=== PATIENT | female | born 1950 | race Caucasian/White ===

== ENCOUNTER 2023-04-28 08:56 | Outpatient (RCR) | payer OTHER, MEDICARE, SELFPAY | END 2023-04-28 23:59 | disposition home or self-care (01) | LOC: RPT 08:56 | PROVIDERS: ATTENDING PHYSICIAN Nurse Practitioner Family; FAMILY PHYSICIAN Internal Medicine | DX: M54.2 Cervicalgia (principal); M54.42 Lumbago with sciatica, left side; Z73.6 Limitation of activities due to disability; V89.2XXD Person injured in unspecified motor-vehicle accident, traffic, subsequent encounter | CPT/HCPCS: 97010; 97110; 97112; 97162 ==

== ENCOUNTER 2023-05-22 13:17 | Outpatient (RCR) | payer OTHER, MEDICARE, SELFPAY | END 2023-05-24 13:49 | disposition home or self-care (01) | LOC: RPT 13:17 | PROVIDERS: ATTENDING PHYSICIAN Nurse Practitioner Family; FAMILY PHYSICIAN Internal Medicine | DX: M54.2 Cervicalgia (principal); M54.42 Lumbago with sciatica, left side | CPT/HCPCS: 97010; 97110; 97112 ==

== ENCOUNTER → 2023-08-31 14:55 | Outpatient (REF) | payer MEDICARE, OTHER, SELFPAY | LOC: HWWDC 14:55 | PROVIDERS: ATTENDING PHYSICIAN Nurse Practitioner Family; FAMILY PHYSICIAN Internal Medicine | DX: Z12.31 Encounter for screening mammogram for malignant neoplasm of breast (principal) | CPT/HCPCS: 77063; 77067 ==

== ENCOUNTER → 2024-01-02 11:58 | Outpatient (REF) | payer MEDICARE, OTHER, SELFPAY | LOC: RCS 11:58 | PROVIDERS: ATTENDING PHYSICIAN Nurse Practitioner Family; FAMILY PHYSICIAN Nurse Practitioner Primary Care; REFERRING PHYSICIAN Internal Medicine Cardiovascular Disease | DX: I48.91 Unspecified atrial fibrillation (principal) | CPT/HCPCS: 93005 ==

== ENCOUNTER 2024-08-26 06:01 | Day surgery (SDC) | payer MEDICARE, OTHER, SELFPAY ==
[2024-08-26] VITALS (9 sets, daily range): BP systolic 130–174; BP diastolic 56–79; BMI 27.1
[2024-08-26 06:37] LABS: Glucose - Point of Care 115 mg/dl (70-99)
[2024-08-26] MEDS: TYLENOL 1000 MG PO (06:38)
[2024-08-26] MEDS: CELEBREX 200 MG PO (06:38)
[2024-08-26] MEDS: NORMOSOL-R/PLASMALYTE-A 1000 IV (06:38)
[2024-08-26 09:49] LABS: Glucose - Point of Care 119 mg/dl (70-99)
[2024-08-26] MEDS: ROXICODONE 5 MG PO (09:58)
== END 2024-08-26 11:40 | disposition home or self-care (01) ==
LOC: SDS 06:01
PROVIDERS: ATTENDING PHYSICIAN Student in an Organized Health Care Education/Training Program
DX: M20.12 Hallux valgus (acquired), left foot (principal)
CPT/HCPCS: 28750; 82962; C1713

== ENCOUNTER → 2024-10-02 08:54 | Outpatient (REF) | payer MEDICARE, OTHER, SELFPAY | LOC: HWRAD 08:54 | PROVIDERS: ATTENDING PHYSICIAN Nurse Practitioner Primary Care | DX: M85.89 Other specified disorders of bone density and structure, multiple sites (principal) | CPT/HCPCS: 77080 ==

== ENCOUNTER → 2024-10-10 07:34 | Outpatient (REF) | payer MEDICARE, OTHER, SELFPAY | LOC: RAD 07:34 | PROVIDERS: ATTENDING PHYSICIAN Nurse Practitioner Primary Care | DX: E78.49 Other hyperlipidemia (principal); R09.89 Other specified symptoms and signs involving the circulatory and respiratory systems | CPT/HCPCS: 93880; 93922; 93925 ==

== ENCOUNTER → 2024-10-23 13:22 | Outpatient (REF) | payer MEDICARE, OTHER, SELFPAY | LOC: HWWDC 13:22 | PROVIDERS: ATTENDING PHYSICIAN Nurse Practitioner Primary Care | DX: Z12.31 Encounter for screening mammogram for malignant neoplasm of breast (principal) | CPT/HCPCS: 77063; 77067 ==

== ENCOUNTER 2024-11-08 10:14 | Day surgery (SDC) | payer MEDICARE, OTHER, SELFPAY ==
[2024-11-08] VITALS (11 sets, daily range): BP systolic 145–184; BP diastolic 53–71; BMI 26.7
[2024-11-08 11:10] LABS: Hematocrit 40.9 % (37.0-47.0); Hemoglobin 13.3 g/dL (12.0-16.0); Mean Corp Hgb Conc. 32.5 g/dL (33.0-37.0); Mean Corpuscular Volume 96.5 fL (81.0-99.0); Platelet Count 242 10^3/uL (130-400); Red Cell Dist. Width 14.0 % (11.5-14.5)
[2024-11-08 11:12] LABS: Glucose - Point of Care 115 mg/dl (70-99)
[2024-11-08 11:21] LABS: APTT 28.9 Sec (23.4-35.0)
[2024-11-08 11:36] LABS: Blood Urea Nitrogen 23 mg/dl (7-17); Calcium 9.3 mg/dl (8.4-10.2); Carbon Dioxide 24 mmol/L (22-30); Chloride 110 mmol/L (98-107); Estimated Creatinine Clearance 43 ml/min; Glucose 131 mg/dl (70-99); Potassium 4.1 mmol/L (3.5-5.1); Sodium 142 mmol/L (135-145); eGFR 58.75
[2024-11-08] MEDS: NSS 500 IV ×2 (13:30→16:28)
--- NOTE | 2024-11-08 13:30 | W.SUR.PREOP ---
Pre-Operative Surgical Note
-
I have examined this patient prior to the performance of the scheduled procedure.
The patient's condition is unchanged from the time of the current History and
Physical and the patient is able to undergo the scheduled procedure.
--- NOTE | 2024-11-08 15:15 | W.SUR.POST ---
Surgical Immediate Post Op
Note
Pre Op Diagnosis: PAD
Post Op Diagnosis: PAD
Procedure Performed: Diagnostic LLE arteriogram, Perclose right fem
Primary Surgeon: Kyle
Anesthesia: local and sedation
Estimated Blood Loss: <2cc
Fluids: see anesthesia flow sheet
Drains/Shunts: none
Specimens/Cultures: none
Doppler/Duplex/Angio (Y/N): Y
Complications: none
Operative Findings: see op note
[2024-11-08 15:24] LABS: Glucose - Point of Care 95 mg/dl (70-99)
--- NOTE | 2024-11-08 15:57 | OR.RPT ---
Operative Report
Operative Report
PROCEDURE DATE: 11/08/2024
Preoperative diagnosis: Chronic limb threatening ischemia left lower extremity, nonhealing left first toe wound.
Postoperative diagnosis: Same
Procedure:
1. Duplex assisted right common femoral artery cannulation.
2. Aortogram and pelvic angiogram.
3. Left lower extremity arteriogram with selective/third order cannulation of the superficial femoral artery.
4. Right femoral angiogram.
5. Percutaneous Perclose suture closure right common femoral artery
6. Supervision and interpretation.
Surgeon: Kyle
Pastry Assistant: None
Complications: None
Anesthesia: Local, sedation
Fluoroscopy:
5.3 min
3.4 mGy
11.01 gy.cm2
Indications for procedure:
Chronic left lower extremity limb threatening ischemia./Benefits/alternatives of angiography fully discussed. Patient understood all wished to proceed.
Description of procedure:
Patient was identified, brought to the operating room. Placed on the table in the supine position. After the adequate administration of anesthesia, the patient was prepped and draped in the standard surgical fashion. A standard preoperative
timeout was undertaken and everybody was in agreement with the plan.
The right common femoral artery was accessed with a micropuncture kit under direct duplex ultrasound guidance. A 5 Maltese sheath was then advanced over a 0.035 inch wire, and a eaton's hook catheter was advanced into the abdominal aorta.
Aortogram and pelvic angiogram was obtained. Findings as follows:
Infrarenal aorta: Patent distal infrarenal aorta with no significant stenosis. Focal plaque/irregularity in the contour but no definitive stenosis or aneurysm identified.
Right common iliac artery: Patent with no significant stenosis.
Right external iliac artery: Patent with no significant stenosis.
Left common iliac artery: Patent with no significant stenosis.
Left external iliac artery: Patent with no significant stenosis.
Using a floppy angled hydrophilic wire, the left common femoral artery was cannulated and the catheter was advanced. Left lower extremity arteriogram was obtained. Findings as follows:
Common femoral artery: Patent with no significant stenosis.
Profunda femoris artery: Patent with no significant stenosis.
At this point I selectively cannulated the left superficial femoral artery and then advanced my catheter.
Superficial femoral artery: Patent with no significant stenosis.
Popliteal artery: Patent with severe focal stenosis in the immediate behind the knee segment. Below the knee was slightly smaller and then there was luminal irregularities with filling defects, appeared to be chronic thrombus as well as some areas
of stenosis. Could have been bulky plaque, but the appearance more so appeared like chronic thrombus. There is thrombus or plaque extended into the below the knee popliteal artery and tibioperoneal trunk origin as well as proximal anterior tibial
artery.
Anterior tibial artery: As noted above there was possibly some chronic thrombus or bulky plaque extending into the origin of anterior tibial artery. Beyond here the artery was patent and continued down onto the foot to become the dorsalis pedis.
Distal dorsalis pedis artery poorly filled and became diminutive.
Tibial peroneal trunk: Patent with filling defect/chronic thrombus/bulky plaque extending from the below-knee popliteal artery into the origin. Beyond the origin the remainder of the TP trunk was patent.
Peroneal artery: Occluded after the first 2 cm. Reconstituted in its mid segment via collaterals. Continued to the ankle where it gave rise to typical Y collaterals though these collaterals were very small/diminutive in stature.
Posterior tibial artery:Patent with some luminal irregularities in the proximal 4 to 6 cm but no definitive stenosis. The remainder of the posterior tibial artery was widely patent with no stenosis identified.
At this point I felt the patient would be best served with a bypass (due to extension of behind the knee popliteal to below the knee popliteal disease as well as involvement of the origins of the trifurcation vessels, and in addition the potential
presence of chronic thrombus). Ideally bypass from above-knee popliteal artery to posterior tibial artery. Patient will have to be vein mapped, will obtain CT angiogram imaging to delineate thrombus versus plaque filling defects.
At this point the wires and catheters were withdrawn. Right femoral angiogram demonstrated good puncture of the right common femoral artery. I therefore then used an Mcfadden Pro-glide percutaneous suture closure device to close the common femoral
artery. There was still some slight ooze and therefore manual pressure was applied as well. Hemostasis was fully achieved. The patient tolerated procedure well. Upon completion she had a palpable right dorsalis pedis pulse.
[2024-11-08] MEDS: NSS 1000 IV (16:29)
== END 2024-11-08 18:00 | disposition home or self-care (01) ==
LOC: CATH 10:14
PROVIDERS: ATTENDING PHYSICIAN Surgery Vascular Surgery; PRIMARYCARE PHYSICIAN Nurse Practitioner Primary Care
DX: E11.51 Type 2 diabetes mellitus with diabetic peripheral angiopathy without gangrene (principal); E11.22 Type 2 diabetes mellitus with diabetic chronic kidney disease; I12.9 Hypertensive chronic kidney disease with stage 1 through stage 4 chronic kidney disease, or unspecified chronic kidney disease; N18.31 Chronic kidney disease, stage 3a; E03.9 Hypothyroidism, unspecified; I25.10 Atherosclerotic heart disease of native coronary artery without angina pectoris; I48.0 Paroxysmal atrial fibrillation; Z95.1 Presence of aortocoronary bypass graft; Z95.5 Presence of coronary angioplasty implant and graft; I25.2 Old myocardial infarction; Z79.899 Other long term (current) drug therapy; Z79.890 Hormone replacement therapy; Z79.84 Long term (current) use of oral hypoglycemic drugs
CPT/HCPCS: 36247; 75625; 75710; 80048; 82962; 85027; 85730; 86850; 86900; 86901; C1760; C1769; C1894; Q9967

== ENCOUNTER → 2024-11-14 08:56 | Outpatient (REF) | payer MEDICARE, OTHER, SELFPAY | LOC: RAD 08:56 | PROVIDERS: ATTENDING PHYSICIAN Surgery Vascular Surgery; FAMILY PHYSICIAN Nurse Practitioner Primary Care; REFERRING PHYSICIAN Nurse Practitioner | DX: I73.9 Peripheral vascular disease, unspecified (principal); Q27.8 Other specified congenital malformations of peripheral vascular system | CPT/HCPCS: 93970 ==

== ENCOUNTER → 2024-11-15 07:41 | Outpatient (REF) | payer MEDICARE, OTHER, SELFPAY | LOC: RAD 07:41 | PROVIDERS: ATTENDING PHYSICIAN Surgery Vascular Surgery; FAMILY PHYSICIAN Nurse Practitioner Primary Care; REFERRING PHYSICIAN Nurse Practitioner | DX: I73.9 Peripheral vascular disease, unspecified (principal) | CPT/HCPCS: 75635; Q9967 ==

== ENCOUNTER 2024-12-11 09:19 | Inpatient (IN) | payer MEDICARE, OTHER, SELFPAY ==
[2024-12-09 09:41] VITALS: BMI 27.7
[2024-12-09 10:08] LABS: Hematocrit 44.3 % (37.0-47.0); Hemoglobin 14.3 g/dL (12.0-16.0); Mean Corp Hgb Conc. 32.3 g/dL (33.0-37.0); Mean Corpuscular Volume 97.4 fL (81.0-99.0); Nucleated Red Blood Cells % 0 %; Platelet Count 227 10^3/uL (130-400); Red Cell Dist. Width 14.1 % (11.5-14.5)
[2024-12-09 10:15] LABS: INR 1.22; PT 15.7 Sec (11.4-14.6)
[2024-12-09 10:16] LABS: APTT 29.2 Sec (23.4-35.0)
[2024-12-09 10:35] LABS: Blood Urea Nitrogen 30 mg/dl (7-17); Calcium 9.9 mg/dl (8.4-10.2); Carbon Dioxide 25 mmol/L (22-30); Chloride 108 mmol/L (98-107); Estimated Creatinine Clearance 35 ml/min; Glucose 144 mg/dl (70-99); Potassium 4.9 mmol/L (3.5-5.1); Sodium 142 mmol/L (135-145); eGFR 47.21
[2024-12-11] VITALS (39 sets, daily range): BP systolic 114–177; BP diastolic 48–117; BMI 26.9
[2024-12-11 10:07] LABS: Glucose - Point of Care 123 mg/dl (70-99)
[2024-12-11] MEDS: BACTROBAN NASAL 1 GRAM NASAL (10:21)
[2024-12-11] MEDS: PERIDEX 0.12% ORAL RINSE 15 ML PO (10:21)
[2024-12-11] MEDS: NSS 500 IV (10:21)
[2024-12-11] MEDS: EMEND 40 MG PO (11:10)
[2024-12-11 11:53] LABS: Glucose - Point of Care 113 mg/dl (70-99)
[2024-12-11 14:12] LABS: Glucose - Point of Care 137 mg/dl (70-99)
--- NOTE | 2024-12-11 15:20 | W.SUR.POST ---
Surgical Immediate Post Op
Note
Pre Op Diagnosis: PAD
Post Op Diagnosis: Same
Procedure Performed: Left lower extremity above-knee pop to PT artery bypass with SVG
Primary Surgeon: Kyle
Assist: Landon ALEGRIA
Anesthesia: General
Estimated Blood Loss: 25 cc
Fluids: See anesthesia flowsheet
Drains/Shunts: None
Specimens/Cultures: None
Doppler/Duplex/Angio (Y/N): Y
Complications: None
Operative Findings: Palpable PT pulse
[2024-12-11 15:45] LABS: Glucose - Point of Care 131 mg/dl (70-99)
[2024-12-11] MEDS: DILAUDID 0.25 MG IV ×2 (15:55→16:07)
[2024-12-11 15:58] LABS: Hematocrit 37.4 % (37.0-47.0); Hemoglobin 12.3 g/dL (12.0-16.0); Mean Corp Hgb Conc. 32.9 g/dL (33.0-37.0); Mean Corpuscular Volume 96.1 fL (81.0-99.0); Platelet Count 205 10^3/uL (130-400); Red Cell Dist. Width 13.8 % (11.5-14.5)
[2024-12-11 16:05] LABS: INR 1.06; PT 14.3 Sec (11.4-14.6)
[2024-12-11 16:06] LABS: APTT 30.8 Sec (23.4-35.0)
[2024-12-11 16:17] LABS: Blood Urea Nitrogen 23 mg/dl (7-17); Calcium 8.5 mg/dl (8.4-10.2); Carbon Dioxide 23 mmol/L (22-30); Chloride 109 mmol/L (98-107); Estimated Creatinine Clearance 53 ml/min; Glucose 140 mg/dl (70-99); Potassium 4.8 mmol/L (3.5-5.1); Sodium 138 mmol/L (135-145); eGFR > 60.00
[2024-12-11] MEDS: NSS 1000 IV (16:33)
--- NOTE | 2024-12-11 16:43 | CON.INTV ---
Consultation
Consultation Request
Date/Time Consultation Requested: 12/11/2024
Date/Time Consultation Performed: 12/11/2024
Medical History
-
Chief Complaint: Nonhealing foot ulcer
History of Present Illness:
Patient is a 74-year-old female who was referred to vascular surgery by her felter tennis balls for nonhealing left foot wound. Patient subsequently had vascular studies performed for suggestive of peripheral vascular disease. Patient today was admitted to
the hospital for bypass surgery and postprocedure patient was admitted to the ICU. 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
Past medical history. Hypertension, hyperlipidemia, diabetes, history of coronary artery disease, status post PCI and coronary artery bypass graft. Acinar cell cancer of pancreas status post distal pancreatectomy and splenectomy. Paroxysmal
atrial fibrillation. Hyperlipidemia.
Surgical history. Thyroid nodule removed, coronary artery bypass graft, distal pancreatectomy and splenectomy, PCI of the heart, left foot surgery bunion surgery.
Family history. Patient's father had sudden cardiac . No reported history of lung cancer.
Social history. No reported history of smoking.
Allergies / Home Medications
Allergies
Allergy/AdvReac Type Severity Reaction Status Date / Time
adhesive tape Allergy Rash Verified 12/11/24 10:14
amoxicillin (From Augmentin) Allergy severe Verified 12/11/24 10:14
stomach
upset/diarrhea
clavulanic acid (From Allergy severe Verified 12/11/24 10:14
Augmentin) stomach
upset/diarrhea
erythromycin base Allergy Tongue Verified 12/11/24 10:14
Swelling
valsartan (From Diovan) Allergy coughing Verified 12/11/24 10:14
Home Medications
�Medication �Instructions �Recorded �Confirmed �Last Taken �Type
amlodipine 5 mg tablet 5 mg PO DAILY 10/06/16 12/11/24 12/11/24 08:00 History
ezetimibe 10 mg tablet 10 mg PO QPM 10/06/16 12/11/24 12/10/24 19:15 History
rosuvastatin 20 mg tablet 20 mg PO QPM 10/06/16 12/11/24 12/10/24 19:15 History
apixaban 5 mg tablet (Eliquis) 5 mg PO BID 08/21/24 12/11/24 12/09/24 20:00 History
empagliflozin 25 mg tablet 25 mg PO DAILY 08/21/24 12/11/24 12/07/24 08:00 History
(Jardiance)
evolocumab 140 mg/mL subcutaneous 140 mg SC Q2W 08/21/24 12/11/24 11/29/24 History
syringe (Repatha Syringe)
acetaminophen 500 mg tablet 500 mg PO Q6H PRN pain 08/26/24 12/11/24 12/10/24 23:30 History
metoprolol succinate 25 mg 25 mg PO DAILY 08/26/24 12/11/24 12/11/24 08:00 History
tablet,extended release 24 hr
calcium 600 mg (as carbonate)-vit 1 tab PO QPM 11/05/24 12/11/24 12/10/24 19:15 History
D3 20 mcg (800 unit) chewable
tablet (Caltrate plus D)
levothyroxine 88 mcg tablet 88 mcg PO DAILY 11/05/24 12/11/24 12/11/24 08:00 History
(Synthroid)
mupirocin 2 % topical ointment 1 applic topical DAILY Left Great 11/05/24 12/11/24 12/11/24 08:00 History
pantoprazole 20 mg tablet,delayed 20 mg PO BID 11/05/24 12/11/24 12/11/24 08:00 History
release (Protonix)
Review of Systems
-
Hematologic/Lymphatic: Other (All 14 systems reviewed and negative except as stated above in the history of present illness.)
Vitals / Labs / Diagnostic Testing
Vital Signs
Temp Pulse Resp BP Pulse Ox
97.1 F 55 13 129/55 100
12/11/24 16:30 12/11/24 16:30 12/11/24 16:30 12/11/24 16:30 12/11/24 16:30
Lab Data
12/11/24 15:44
12/11/24 15:44
Laboratory Results
12/11/24
15:44
PT 14.3
INR 1.06
APTT 30.8
Diagnostic Testing:
Physical Exam
-
HEENT: Normocephalic
Cardiovascular: S1/S2
Respiratory: Clear
GI: Soft and Non Distended
Neurology: Awake and Alert
Skin: Warm and Other (Left foot somewhat warmer than the right)
General: Comfortable
Assessment
-
Patient is a 74-year-old female with history of peripheral vascular disease s/p left lower extremity above-knee popliteal to posterior tibial artery bypass with saphenous vein graft by vascular surgery service, POD #0
Continue observation following procedure
Follow neurovascular checks per protocol
Currently on Zetia, rosuvastatin, subcu heparin.
Defer antiplatelet and anticoagulant therapy to vascular surgery service
MAP of 82 currently, saturating 100% on 4 L supplemental oxygen.
Follow BP monitoring and parameters as set by primary team
Cardiac history reviewed, known history of coronary artery disease, PCI, CABG and atrial fibrillation
Monitor on telemetry
Pain control per protocol
RASS goal 0
No prior history of pulmonary disease, no prior history of smoking.
CXR reviewed indicating no acute disease
No prior PFTs for review
Encouraged IS
Diet advancement per protocol
Aspiration precautions
GI prophylaxis: Protonix
Cr at baseline, follow UO
Critical I/Os
Void trials
Replete electrolytes as needed
No signs/symptoms suspicious for infectious etiology at this time
Will observe off antibiotics for now
Follow temperatures/CBC
Hb and platelets postoperatively stable
DVT prophylaxis: Subcu heparin
Other medical diagnoses:
- CAD, s/p CABG 1991, PCI 2016. Currently on metoprolol and statins.
- Moderate Aortic stenosis
- Chronic Atrial Fibrillation. Currently on metoprolol, defer timing for anticoagulation resumption to vascular surgery service
- Hyperlipidemia. on Repatha, Zetia and Crestor
- HTN
- Hypothyroidism
- History of pancreatic cancer, status poor partial pancreatectomy and splenectomy.
Critical Care time 52 mins -- The patient is admitted for acute critical illness for the treatment of vital organ failure and/or prevention of further life-threatening conditions. Total care includes time spent in review of history, physical exam,
medications, hemodynamic/ventilator parameters, laboratory data, imaging and discussion with house staff, pharmacy, respiratory therapy, kids club attendant, and nursing
Data:
CXR 11/2024: Mild to moderate cardiomegaly
[2024-12-11] MEDS: DILAUDID 0.5 MG IV (17:34)
--- NOTE | 2024-12-11 17:40 | PTCARENOTE ---
Rec'd pt at 1650 via bed from PACU. Rec'd pt groggy but easily arousable and oriented. Admitted within 10-15 min of arrival to 9/10 L calf cramping. Initally did not want to take anything for it then agreed to take the pain medication and Medicated
at 1734 with Dilaudid 0.5 mg IV. Denies dizziness or headache. SKin is pale pink wm and dry. Pt with healing surgical wound from previous bunion surgery on L great toe. Currently with scabbing over. Pt with 3 incision down the L leg. L groin
incision with Primaseal dressing that is intact with scant amt of sang drainage. L thigh incision also with Primaseal with small amt of sang drainage and JOANNA wrap over. L calf with Primaseal dressing with small amt of sang drainage. All intact. Legs
bilaterally are warm to touch with cap refill <2 seconds. Denies numbness and able to move legs. + pulses. Bilat PT and Dp pulses are palpable as documented. No edema. Respirs are unlabored. Rec'd pt on 6l facemask with sats of 100%. Transitioned at
1730 to 2l nc with sats of 95-96%. BS are sl decreased at the bases otherwise clear. Monitor Aflutter with some periods of what might look like Afib. + murmur. VS as documented. Pt with L radial a line- zeroed and recalibrated. Waveform as
documented. Good CMS checks. Running about 20-30 mm/hg higher than the cuff Bp's 140/70 cuff vs 170/70's A line. Checked both upper arms both with same result. Abd is sof t with + BS. Denies nausea currently. Thermistor espinal intact for yellow
urine. IV NS infusing via R wrist site at 80 ml/hr Capped int intact L AC. Iza Navarrete in to see pt and aware of BP a line running in the 170's-will continue to monitor for now. Pts and daughter in. Call polanco in reach.
--- NOTE | 2024-12-11 18:00 | PTCARENOTE ---
Incisions unchanged. + pulses as documented. Pt does state that cramping is much better post Dilaudid. Daughter at the bedside.
[2024-12-11 18:03] LABS: Glucose - Point of Care 126 mg/dl (70-99)
--- NOTE | 2024-12-11 18:20 | PTCARENOTE ---
ECG and CXRay completed.
--- NOTE | 2024-12-11 18:21 | OR.RPT ---
Operative Report
Operative Report
PROCEDURE DATE: 12/11/2024
Preoperative diagnosis: Chronic limb threatening ischemia left lower extremity
Postoperative diagnosis: Same
Procedure: Left [id number] popliteal artery to posterior tibial artery bypass with ipsilateral nonreversed greater saphenous vein conduit.
Surgeon: Kyle
Security Intern: JOEL Navarrete, required for all aspects of procedure including assistance with traction/countertraction, following a suture line, assistance with closure.
Complications: None
Anesthesia: General
Indications for procedure:
Chronic limb threatening ischemia left lower extremity with nonhealing left first toe wound. CT angiogram and angiogram had confirmed significant peripheral arterial disease with occlusive disease below the knee. Risk/benefits/alternatives of
bypass were fully discussed. Patient understood and wished to proceed.
Description of procedure:
Patient was identified brought to the operating room placed on the table in supine position. After the adequate administration of anesthesia she was prepped and draped in the standard surgical fashion. A standard preoperative timeout was
undertaken and everybody was in agreement the plan. A longitudinal incision was made in the medial distal thigh that was carried through skin subcutaneous tissue. The sartorius muscle reflected posteriorly and in the deep loose areolar tissue
identified the popliteal artery. It was nicely pulsatile. It was soft. There was a lot of subcutaneous fat surrounding it and therefore I carefully dissected away from surrounding structures. Vessel loop was passed around it proximally and
distally.
Next a longitudinal incision was made in the medial mid calf about a fingerbreadth inferior to the tibia that was carried through skin subcutaneous tissue with the electrocautery. I then used electrocautery to divide through the soleus muscle to
the divided off the tibia. The deep posterior compartment was then entered. I identified the posterior tibial vein and then the artery. The artery was noted to be soft and had a good Doppler signal, however was a very small vessel. After hide
carefully dissected the lateral and medial groves for suitable segment, I was satisfied (I did not fully circumferentially dissected yet).
At this point I then made a longitudinal incision in the medial proximal thigh and extended it via another skip incision to mobilize the greater saphenous vein. The saphenous vein was identified and mobilized out of its bed, ligating any branches
between silk ties and clips and then dividing them. Once I mobilized a suitable segment of vein I ligated the vein distally with a heavy silk tie and a clip. I then transected. Proximally I used a silk suture ligature and a clip and then
transected it. I then distended the vein under heparinized saline. It distended very well. At this point I then made an anatomic tunnel that I created between my posterior tibial arterial exposure site and the above-knee popliteal artery exposure
site. And a buckle tape was passed through the tunnel to shreya the space.
At this point I gave the patient an appropriate dose of heparin. Once this had circulated I then double looped and tightened my Vesseloops on the popliteal artery above the knee proximally and distally. I then made an arteriotomy with an 11 blade
and extended using a Kelly scissor. I maintained the vein in a nonreversed fashion and sewed an end-to-side anastomosis between the spatulated vein and the popliteal artery using a running 6-0 Prolene suture. I completed and tied down my suture
line. I next released my Vesseloops on the artery. There is now excellent pulsatile flow again in the artery and into the vein bypass graft. I now used a [employer] valvulotome to successfully valvulotomize the vein bypass graft. Once I successfully
did this there is now excellent pulsatile flow. There was 1 small sidebranch that had been ligated with a silk tie, but this was loose. Therefore I had to repair this with a 7-0 Prolene [id number]-[id number] type suture. Now I marked the anterior
surface under distention to avoid any kinking or twisting and then I passed it through my tunnel. I now carefully circumferentially dissected the posterior tibial artery proximally and distally after I reexposed that field. I placed Yasargil clips
on the artery proximally and distally to occlude the artery. I then made an arteriotomy with a [place] blade and extended using a micro Kelly scissor. It was a normal-looking lumen albeit small. The vein was then trimmed and then spatulated and an
end-to-side anastomosis was fashioned using a running 7-0 Prolene suture. Prior to completing and tying down my suture line I backbled the [place] artery, flushed out the vein graft (bulldog clamp had been placed on the vein graft), and then flushed
heparinized saline. I then completed and tied down my suture line and then released my proximal Yasargil clamp on the proximal posterior tibial artery. I then released the bulldog clamp on the vein graft. Finally I released the distal outflow
Yasargil clip. There is good pulsatile flow now into the posterior tibial artery beyond the anastomosis. Doppler confirmed a significantly graft augmented signal. There is now good Doppler signal at the ankle which was also significantly graft
augmented. There is now also a palpable pulse at the ankle and the posterior tibial artery. At this point is very satisfied. A single [id number] 7-0 Prolene suture was placed on the suture line had a small bleeding point at the distal
anastomosis. Now hemostasis was fully achieved. I now meticulously inspected and confirmed full hemostasis throughout the incision sites. The arterial exposure sites were now closed using 2-0 Vicryl deeper layer followed by 3-0 Vicryl deep dermal
layer. Saphenectomy sites were closed using 3-0 Vicryl deep dermal layer. Skin clips were then applied to all the incision sites. Dressings were applied. All sponge, needle, instrument counts were correct at the end of the case. The patient
tolerated the procedure well. She was transported to recovery room in stable condition.
--- NOTE | 2024-12-11 18:30 | PTCARENOTE ---
Pt awake but is c/o some dizziness/ Vertigo from which she states is from the Dilaudid. Also admits to some nausea-did not want any Zofran. Tolerating 2l nc with sats of 95%. VS as documented. A line still running about 20-30 mm/hg higher than the
cuff Bp. Is taking a few sips of liquids. Pulses and dressings unchanged.
[2024-12-11] MEDS: NOVOLOG FLEXPEN-LOW RESISTANCE SC (18:52)
[2024-12-11] MEDS: CRESTOR 20 MG PO (18:53)
[2024-12-11] MEDS: OSCAL CAL 500 PO (18:53)
[2024-12-11] MEDS: ZETIA 10 MG PO (18:53)
--- NOTE | 2024-12-11 19:00 | PTCARENOTE ---
Vascular checks completed with oncoming RN. Pt continues with some nausea and dizziness but does not want anything for it. Call polanco in reach.
--- NOTE | 2024-12-11 20:00 | PTCARENOTE ---
Pt received start of shift, HR A-flutter on telemetry. Pt c/o nausea + dizziness d/t 'vertigo'. Refusing any zofran or compazine. PRN tylenol administered for pain - see JUN. DP and PT pulses palpable. LLE dressings with small amount of drainage.
Site soft, no edema or hematoma. NSS infusing as ordered. 2L NC POX 98%. Daughter at bedside. L radial A-line not correlating with NIBP, zeroed and repositioning ineffective at resolving. Vascular team aware - going off of a-line pressures. Vicente
draining clear yellow urine.
[2024-12-11] MEDS: PROTONIX 20 MG PO (20:07)
[2024-12-11] MEDS: TYLENOL 650 MG PO (20:07)
[2024-12-11] MEDS: VITAMIN D3 (cholecalciferol) PO (20:24)
[2024-12-11 21:14] LABS: Glucose - Point of Care 154 mg/dl (70-99)
[2024-12-12] VITALS (21 sets, daily range): BP systolic 97–154; BP diastolic 44–97; BMI 27.4
--- NOTE | 2024-12-12 01:18 | PTCARENOTE ---
PT and DP pulses remain palpable. Nausea/dizziness has resolved w/o intervention. No further change in assessment.
[2024-12-12] MEDS: ROXICODONE 5 MG PO ×3 (04:11→16:49)
[2024-12-12] MEDS: NSS 1000 IV (04:12)
[2024-12-12 04:41] LABS: Hematocrit 37.1 % (37.0-47.0); Hemoglobin 12.2 g/dL (12.0-16.0); Mean Corp Hgb Conc. 32.9 g/dL (33.0-37.0); Mean Corpuscular Volume 96.1 fL (81.0-99.0); Platelet Count 197 10^3/uL (130-400); Red Cell Dist. Width 13.8 % (11.5-14.5)
[2024-12-12 04:51] LABS: INR 1.00; PT 13.7 Sec (11.4-14.6)
[2024-12-12 04:52] LABS: APTT 30.2 Sec (23.4-35.0)
[2024-12-12 05:02] LABS: Blood Urea Nitrogen 19 mg/dl (7-17); Calcium 8.9 mg/dl (8.4-10.2); Carbon Dioxide 21 mmol/L (22-30); Chloride 111 mmol/L (98-107); Estimated Creatinine Clearance 54 ml/min; Glucose 134 mg/dl (70-99); Potassium 4.9 mmol/L (3.5-5.1); Sodium 138 mmol/L (135-145); eGFR > 60.00
[2024-12-12] MEDS: SYNTHROID 88 MCG PO (05:06)
--- NOTE | 2024-12-12 06:43 | PTCARENOTE ---
MILTON mosley for cramping in L leg - see MAR. No further change in assessment.
[2024-12-12] MEDS: NOVOLOG FLEXPEN-LOW RESISTANCE SC (07:52)
[2024-12-12] MEDS: NORVASC 5 MG PO (07:53)
[2024-12-12] MEDS: PROTONIX 20 MG PO ×2 (07:53→19:13)
[2024-12-12 08:04] LABS: Glucose - Point of Care 119 mg/dl (70-99)
--- NOTE | 2024-12-12 08:13 | W.PN.VS ---
Addendum entered and electronically signed by Milan Wright MD 12/12/24 09:56:
Seen and examined with INVESTMENT SALES ASSISTANT. Agree with findings as noted below. Patient just notes some soreness in the calf muscle. Otherwise no significant complaints. Left lower extremity thigh and calf are soft. No hematoma. Dressings are all clean dry and
intact. Foot is warm. 2+ palpable PT pulse. Plan/as discussed and noted below.
Original Note:
Today's Communication / Plan
-
Patient seen and examined at bedside with Dr. Milan Wright, below plan reviewed with attending.
Assessment/Plan
-
Assessment: 74 year old female POD#1 Left [id number] popliteal artery to posterior tibial artery bypass with ipsilateral nonreversed greater saphenous vein conduit.
Plan:
Discontinue arterial line
Discontinue Vicente catheter
OOB to chair today, will liberalize ambulation status tomorrow and consult PT
Continue ICU level care today
Continue neovascular checks
Will restart home OAC of eliquis today with PM dose
Subjective Data
-
Date of Service: December 12, 2024
Patient seen and examined, reports well managed postoperative pain. Denies nausea, vomiting, fever, and chills.
Objective Data
-
Vital Signs
Temp Pulse Resp BP Pulse Ox
97.8 F 44 11 135/53 98
12/12/24 08:11 12/12/24 08:00 12/12/24 08:00 12/12/24 08:00 12/12/24 08:00
Intake and Output
12/11/24 12/12/24 12/13/24
06:59 06:59 06:59
Intake Total 1880 / 1960 160 / 160
Output Total 1735 / 1775 85 / 85
Balance 145 / 185 75 / 75
Intake:
Oral fluids 490 / 490
IV fluids (Total) 1390 / 1470 160 / 160
Normosol 350 / 350
Nss 1,000 ml @ 80 mls/hr IV . 1040 / 1120 160 / 160
[id number] [id number] Rx#:[id number]
Output:
Urine, Vicente 1535 / 1575 85 / 85
Urine, Voided 200 / 200
Lab Results
12/12/24 04:24
12/12/24 04:24
Calcium 8.9 mg/dl (8.4-10.2) 12/12/24 04:24
Physical Exam
-
No apparent distress, resting in bed comfortably
Afebrile
No tachycardia
No dyspnea on 2L NC
ABD flat, non-tender, non distended
Left lower extremity dressing dry and intact, no edema or hematoma, all compartments soft, palpable +2 PT pulse
Vicente draining clear yellow urine
--- NOTE | 2024-12-12 09:15 | PTCARENOTE ---
Rec'd care of patient at 0700. Patient alert and oriented. MAEx4. Afib on tele. Rate in the 40-50's; dropping as low as the 30's. Vascular surgery rnp notified. Hold parameters placed. +Murmur. Q1hr LLE neurovascular check (see worklist). Old
drainage on dressings. Oliver wrap removed by vascular surgery. Weaned to RA. Pulse ox mid to high 90's. Lung sounds diminished in b/l bases. +BS. Diet advanced per protocol. Vicente in place for critical I/Os. IVFs infusing through peripheral INT. Left
radial jacquie leveled and zeroed; not correlating with bp cuff. BP cuff pressures correlating between both arms.
--- NOTE | 2024-12-12 10:00 | PTCARENOTE ---
IVFs capped. Vicente removed. Martha out. Patient c/o moderate cramping pain in LLE; prn Kiersten administered prior to getting oob to chair.
[2024-12-12] MEDS: LOW STRENGTH ASPIRIN 81 MG PO (11:51)
[2024-12-12] MEDS: TOPROL XL PO (11:51)
--- NOTE | 2024-12-12 12:00 | PTCARENOTE ---
Systems reviewed, no changes from prior assessment. LLE neurovascular check wnl. VSS. Remains in afib, rate in the 40-50's. Assisted oob to chair x1.
[2024-12-12 12:50] LABS: Glucose - Point of Care 153 mg/dl (70-99)
[2024-12-12] MEDS: NOVOLOG FLEXPEN-LOW RESISTANCE 1 UNITS SC ×2 (12:54→16:50)
--- NOTE | 2024-12-12 13:08 | W.PN.INTV ---
Today's Communication / Plan
Recommendations
- Incentive spirometry, monitor limb perfusion closely
- X Ray Technician service will sign off once patient is transferred out of ICU
Assessment
-
Patient is a 74-year-old female with history of peripheral vascular disease s/p left lower extremity above-knee popliteal to posterior tibial artery bypass with saphenous vein graft by vascular surgery service, POD #1
Continue observation following procedure
Follow neurovascular checks per protocol
Currently on Zetia, rosuvastatin, p.o. Eliquis to be initiated 08/14 PM
MAP of 68, saturating 94% on room air. Current infusions heparin drip and normal saline at 100/h.
Follow BP monitoring and parameters as set by primary team
Cardiac history reviewed, known history of coronary artery disease, PCI, CABG and atrial fibrillation
Monitor on telemetry
Pain control per protocol
RASS goal 0
No prior history of pulmonary disease, no prior history of smoking.
CXR reviewed indicating no acute disease
No prior PFTs for review
Encouraged IS
Diet advancement per protocol
Aspiration precautions
GI prophylaxis: Protonix
Cr at baseline, follow UO
Critical I/Os
Void trials
Replete electrolytes as needed
No signs/symptoms suspicious for infectious etiology at this time
Will observe off antibiotics for now
Follow temperatures/CBC
Hb and platelets postoperatively stable
DVT prophylaxis: Subcu heparin
Other medical diagnoses:
- CAD, s/p CABG 1991, PCI 2016. Currently on ASA, metoprolol and statins.
- Moderate Aortic stenosis
- Chronic Atrial Fibrillation. Currently on metoprolol, Eliquis resumed per vascular surgery service
- Hyperlipidemia. on Repatha, Zetia and Crestor
- HTN
- Hypothyroidism
- History of pancreatic cancer, status poor partial pancreatectomy and splenectomy.
Critical Care time 42 mins -- The patient is admitted for acute critical illness for the treatment of vital organ failure and/or prevention of further life-threatening conditions. Total care includes time spent in review of history, physical exam,
medications, hemodynamic/ventilator parameters, laboratory data, imaging and discussion with house staff, pharmacy, respiratory therapy, gun perforator loader, and nursing
Data:
CXR 11/2024: Mild to moderate cardiomegaly
Subjective Dataa
Subjective Data
Date of Service:
Date of Service: December 12, 2024
Subjective:
Patient comfortably lying in bed in no acute distress. Reports pain and discomfort in the calf improving.
Review of Systems
Genitourinary: Other (No new respiratory symptoms.)
Objective Data
Data Reviewed
Vital Signs / I&O / Oxygen:
Vital Signs
Temp Pulse Resp BP Pulse Ox
98.4 F 61 24 117/71 95
12/12/24 11:50 12/12/24 12:00 12/12/24 12:00 12/12/24 12:00 12/12/24 12:00
Intake and Output
12/11/24 12/12/24 12/13/24
06:59 06:59 06:59
Intake Total 1880 / 1960 200 / 200
Output Total 1735 / 1775 240 / 240
Balance 145 / 185 -40 / -40
SaO2 95
Nasal Cannula flow liters per 2
minute
Physical Exam
General: Comfortable
HEENT: Normocephalic
Cardiovascular: S1-S2
Respiratory: Clear and Non-Labored Respirations
GI: Soft and Non Distended
Neurology: Awake and Alert
Skin: Warm
Labs/Micro/Reports
Lab Data
12/12/24 04:24
12/12/24 04:24
Laboratory Results
12/11/24 12/12/24
15:44 04:24
PT 14.3 13.7
INR 1.06 1.00
APTT 30.8 30.2
[2024-12-12 15:02] LABS: Glycohemoglobin (HgbA1c) 7.0 % (4.0-5.6)
--- NOTE | 2024-12-12 15:12 | PTCARENOTE ---
Addendum entered by Mayuri Slaughter RN 12/12/24 15:30:
Dr. Wright notified. EKG obtained.
Original Note:
Patient observed to have a 26 beat run of a wide complex tachycardia on tele monitor. Asymptomatic; talking on phone with daughter. HR 60, BP 122/58. Professional Development Instructor notified. Mag level drawn. Currently back in afib; rate in the 40-50's.
[2024-12-12 15:26] LABS: Magnesium 2.4 mg/dl (1.6-2.3)
[2024-12-12] MEDS: TOPROL XL 25 MG PO (15:36)
--- NOTE | 2024-12-12 15:38 | PTCARENOTE ---
Cardiology consult placed. Troponin level ordered. Metoprolol dose administered as ordered.
--- NOTE | 2024-12-12 16:04 | CON.CAR ---
Addendum entered and electronically signed by Juan C Rodarte MD 12/12/24 19:20:
74-year-old woman with history of CABG and permanent atrial fibrillation who had a 26 beat run of nonsustained VT average heart rate 130-140 with a right bundle inferior axis morphology. Some variability and cycle length, 2 different morphologies
postop day 1 following left [id number]-ryem popliteal artery to posterior tibial artery bypass with nonreversed saphenous vein.
PMH/PSH: CABG times 06/19/1991, SERRANO to LAD, SVG to circumflex, 2016 occluded vein graft to circumflex, occluded OM 2, 95% proximal RCA stenosis with rotational atherectomy and drug-eluting stents, residual 70% ostial left main, patent SERRANO to LAD,
permanent A-fib, moderate aortic stenosis by echo November 2024, hypertension, PAD, familial hypercholesterolemia, CKD 3 yea, distal pancreatectomy and splenectomy 2016, thyroid surgery, type 2 diabetes
Outpatient meds: Amlodipine, Eliquis, ezetimibe, Jardiance, levothyroxine, metoprolol ER 25 mg daily, Repatha, rosuvastatin
Rest of history as below. Reviewed in detail and agree, unless otherwise specified
120/47, pulse 52, respiratory rate 18, afebrile, no distress, head neck exam unremarkable, relatively bradycardic but heart rate adequate, aortic stenosis murmur, irregular rate and rhythm JVD okay carotids with bruits abdomen benign, left leg warm,
incisions intact good distal pulses in the left lower extremity toes not examined
Echocardiogram 11/27/2024: EF 60-65%, moderate aortic stenosis, mild to moderate aortic regurgitation, moderate mitral regurgitation
ECG: Atrial fibrillation, slow ventricular response proceeding ECG with atrial flutter
Chest x-ray cardiomegaly, prior surgery
Hemoglobin 12.2, BUN and creatinine 19 and 0.8, potassium 4.9, hemoglobin A1c 7, magnesium 2.4
Impression:
Nonsustained ventricular tachycardia
CAD/history of CABG 1991, SERRANO to LAD and occluded SVG to occluded OM 2 with 70% left main
RCA PCI 2015 with drug-eluting stent
PAD with popliteal to posterior tibial bypass 12/11/2024
Permanent atrial fibrillation with relatively slow ventricular response
Familial hypercholesterolemia
Moderate aortic stenosis, moderate MR, mild to moderate AI
Plan:
She presents with an impressive run of nonsustained VT 26 beats in length. She was asymptomatic and clinically looks and feels well at this time. This occurred 1 day postop, metoprolol had been held for bradycardia. Her LV function is normal, and
she has no anginal symptoms at present. Her troponin was 0.019. By definition, she could have some ischemia in the distribution of the obtuse marginal.
Would restart metoprolol ER 25 mg a day which has been done.
If stable tomorrow she could be considered for discharge. She will at the least need ambulatory telemetry monitoring and pharmacologic sestamibi study or myocardial perfusion PET/CT. Thereafter it can be determined if additional testing, referral
for EP evaluation, etc. is indicated.
We will reevaluate in a.m.
Original Note:
Consultation
Consultation Request
Date/Time Consultation Requested: 12/12/2024, 1523
Date/Time Consultation Performed: 12/12/2024 1545
Requesting Provider: AIRAM Ceja
Performing Provider: AIRAM Cain for Dr Rodarte
Reason for Consultation: wide complex tachycardia
Medical History
-
Chief Complaint: wide complex tachycardia on telemetry (asymptomatic)
History of Present Illness:
74-year-old female POD 1 left [id number] popliteal artery to posterior tibial artery bypass with ipsilateral nonreversed greater saphenous vein conduit for history of nonhealing left foot wound.
She has a past medical history of coronary artery disease status post CABG x 2 and subsequent stenting in 2016 and 2017, permanent atrial fibrillation (on Eliquis and Toprol), moderate aortic stenosis,HTN, familial hypercholesterolemia, peripheral
arterial disease, chronic kidney disease stage IIIA, baseline creatinine 1.2.
She follows with cardiology at [facility] in [place] and was seen on 11/27/2024 for preprocedure cardiac clearance. Echocardiogram was advised and performed on 11/27/2024 showing normal LV size and function EF 60 to 65%, moderate
, mild to moderate AI, moderate MR.
Cardiology consulted 12/12/24 for 25 beat run wide-complex tachycardia on telemetry. Patient was sitting in chair talking on phone and asymptomatic at time of episode. Labs today K4.9, mag 2.2, NA 138, BUN/creatinine 19/0.8, hemoglobin 12.1.
Telemetry reviewed: NSVT 150 bpm
Twelve-lead EKG following episode atrial fibrillation 52 bpm
She denies syncope, palpitations, chest pain, shortness of breath, lightheadedness, edema, PND, orthopnea.
Her A-fib has been managed with OAC with Eliquis and rate control with metoprolol. She tells me she was on Toprol 200 mg daily when she was first diagnosed in 2016 and dose has been progressively down titrated since then. Most recently, dose
decreased to 25 mg daily in early 2024 due to lightheadedness with improvement in symptoms.
PMH:
CAD
-s/p CABG x 2 1991, SERRANO to LAD, SVG to circumflex
-recurrent angina 2015- had occluded vein graft to circumflex marginal, total occlusion second obtuse marginal with collaterals, 95% lesion proximal RCA treated with rotational atherectomy and drug-eluting stent. She had residual 70% ostial left
main stenosis.
-recurrent angina 2016 with in-stent restenosis of the RCA treated with drug-eluting stent.
Permanent afib- initially diagonsed 2016
HTN
(moderate echo 11/2024)
PAD
Familial hypercholesterolemia-followed in advanced lipid clinic at [facility]
Chronic kidney disease stage IIIa, baseline creatinine 1.2
acinar cell cancer of pancreas s/p distal pancreatectomy and splenectomy 2016
Past Medical History
Past Medical History: None and Other (as above)
Past Surgical History: Other (CABG, PCI, distal pancreatectomy and splenectomy, left foot bunion surgery, thyroid nodule removed)
Social History
Tobacco: Non-Smoker
Family History
Family History: Other (Father with sudden cardiac )
Allergies / Home Medications
Allergy/AdvReac Type Severity Reaction Status Date / Time
adhesive tape Allergy Rash Verified 12/11/24 10:14
erythromycin base Allergy Tongue Verified 12/11/24 10:14
Swelling
amoxicillin (From Augmentin) AdvReac severe Verified 12/11/24 16:59
stomach
upset/diarrhea
clavulanic acid (From AdvReac severe Verified 12/11/24 16:59
Augmentin) stomach
upset/diarrhea
valsartan (From Diovan) AdvReac coughing Verified 12/11/24 16:59
�Medication �Instructions �Recorded �Confirmed �Type
amlodipine 5 mg tablet 5 mg PO DAILY 10/06/16 12/11/24 History
ezetimibe 10 mg tablet 10 mg PO QPM 10/06/16 12/11/24 History
rosuvastatin 20 mg tablet 20 mg PO QPM 10/06/16 12/11/24 History
apixaban 5 mg tablet (Eliquis) 5 mg PO BID 08/21/24 12/11/24 History
empagliflozin 25 mg tablet 25 mg PO DAILY 08/21/24 12/11/24 History
(Jardiance)
evolocumab 140 mg/mL subcutaneous 140 mg SC Q2W 08/21/24 12/11/24 History
syringe (Repatha Syringe)
acetaminophen 500 mg tablet 500 mg PO Q6H PRN pain 08/26/24 12/11/24 History
metoprolol succinate 25 mg 25 mg PO DAILY 08/26/24 12/11/24 History
tablet,extended release 24 hr
calcium 600 mg (as carbonate)-vit 1 tab PO QPM 11/05/24 12/11/24 History
D3 20 mcg (800 unit) chewable
tablet (Caltrate plus D)
levothyroxine 88 mcg tablet 88 mcg PO DAILY 11/05/24 12/11/24 History
(Synthroid)
mupirocin 2 % topical ointment 1 applic topical DAILY Left Great 11/05/24 12/11/24 History
pantoprazole 20 mg tablet,delayed 20 mg PO BID 11/05/24 12/11/24 History
release (Protonix)
Review of Systems
-
History Source: Patient
All other systems: Negative unless noted
Physical Exam
Vital Signs
Temp Pulse Resp BP Pulse Ox
98.3 F 57 20 141/51 96
12/12/24 16:02 12/12/24 16:00 12/12/24 16:00 12/12/24 16:00 12/12/24 16:00
GEN: No distress, awake, Ox3
HEENT: supple, anicteric, mmm
LUNGS: CTA, no wheezes/rales
CV: Reg, S1/S2, 2 out of 6 systolic ejection murmur at base
ABD: soft, BS+, NT/ND
EXT: Trace left lower extremity edema
NEURO: Gross non-focal
SKIN: Left lower extremity dressings dry and intact,
2+ B/L PT pulses
Lab Results
12/12/24 04:24
12/12/24 04:24
Impression / Plan
-
PCP: Aston Valdez
Prim umbrella tipper: [facility], last seen by Pearl ALEGRIA
Impression:
NSVT on telemetry
h/o CAD s/p CABG and stenting
h/o PAD s/p L [id number] popliteal artery to posterior tibial artery bypass with ipsilateral nonreversed greater saphenous vein conduit for history of nonhealing left foot wound on 12/11/2024
mod
mod MR
normal LV function on echo 11/27/2024
Permanent atrial fibrillation
Familial hyperlipidemia
Hypertension
History of pancreatic cancer status post partial pancreatectomy and splenectomy
hypothyroidism
Previous cardiovascular testing:
Echo 11/27/2024: normal LV size and function EF 60 to 65%, moderate , mild to moderate AI, moderate MR.
Plan:
NSVT
-26 beats, asymptomatic
-K and Mag WNL K 4.9, Mag 2.4
-trop 0.019
-recent echo stable with nl LV fxn, and stable mod /MR
-has not had recent ischemic workup, would consider nuclear stress test at a minimum, cardiac cath if recurrent NSVT
-Toprol held this a.m. due to HR 48 bpm, but rec'd dose at 1530 after episode NSVT
-cont daily Toprol
-cont telem monitoring
h/o CAD
- s/p CABG x 2 1991, SERRANO to LAD, SVG to circumflex. Recurrent angina 2015- had occluded vein graft to circumflex marginal, total occlusion second obtuse marginal with collaterals, 95% lesion proximal RCA-tx w/ rotational atherectomy and TANYA. She
had residual 70% ostial left main stenosis. Recurrent angina 2016 with in-stent restenosis of the RCA treated with TANYA.
-no anginal symptoms currently or preoperatively
-no recent ischemic workup
-on beta moe, statin, zetia, PCSK9 tx. On eliquis, ASA
permanent afib
- Diagnosed 2017
- On OAC with Eliquis 5 mg twice daily, restarting med tonight postoperatively
- Has been on Toprol, dose decreased from 50 to 25 mg in early 2024 due to complaints of lightheadedness. Lightheadedness has resolved on lower dose.
- Overnight on telemetry patient with A-fib with heart rates in mid 40s. Toprol held this morning, but given after run of NSVT
HTN
-controlled on Amlodipine and Toprol
Familial hypercholesterolemia
-on Repatha, Crestor, Zetia
-FLP 06/19/2024: LDL 38, HDL 70, TG 60, tchol 121.
Data Reviewed
-
EKG: Tracing Personally Visualized and interpreted
Medical Tests (Nuc Med, Echo etc): Image Personally Visualized and interpreted
Labs: Labs Reviewed by me
[2024-12-12 16:20] LABS: Troponin I 0.019 ng/ml
[2024-12-12 16:57] LABS: Glucose - Point of Care 168 mg/dl (70-99)
[2024-12-12] MEDS: ZETIA 10 MG PO (18:16)
[2024-12-12] MEDS: VITAMIN D3 (cholecalciferol) 20 MCG PO (18:16)
[2024-12-12] MEDS: OSCAL CAL 500 500 MG PO (18:17)
[2024-12-12] MEDS: CRESTOR 20 MG PO (18:17)
[2024-12-12] MEDS: TYLENOL 650 MG PO (19:13)
[2024-12-12] MEDS: ELIQUIS 5 MG PO (19:13)
--- NOTE | 2024-12-12 22:00 | PTCARENOTE ---
Pt received start of shift, HR A-flutter on telemetry. PRN tylenol administered for pain - see JUN. DP and PT pulses palpable. LLE dressings with small amount of drainage. Sites soft, hematoma. Pt x1 assist out of chair to commode and then to bed
with rolling walker. Pt very concerned and anxious about episode of VT earlier in the day. Pt states she feels as if she cannot catch a break, as one thing always leads to the next (in regards to her health). Pt tearful. Therapeutic speech utilized.
Effective, pt appears less anxious.
[2024-12-12 22:13] LABS: Glucose - Point of Care 115 mg/dl (70-99)
[2024-12-13] VITALS (27 sets, daily range): BP systolic 104–179; BP diastolic 38–67; PULSE 56; O2SAT 93; BMI 27.1
--- NOTE | 2024-12-13 01:23 | PTCARENOTE ---
Pt reassessed. PT and DP pulses remain palpable. Assisted x1 to bedside commode w/ walker and back to bed. Pt gait unsteady, tentatively placing weight on LLE when moving. Refusing any pain medication at this time.
[2024-12-13 03:45] LABS: Hematocrit 37.9 % (37.0-47.0); Hemoglobin 12.4 g/dL (12.0-16.0); Mean Corp Hgb Conc. 32.7 g/dL (33.0-37.0); Mean Corpuscular Volume 97.4 fL (81.0-99.0); Platelet Count 191 10^3/uL (130-400); Red Cell Dist. Width 14.1 % (11.5-14.5)
[2024-12-13 04:11] LABS: Blood Urea Nitrogen 24 mg/dl (7-17); Calcium 9.1 mg/dl (8.4-10.2); Carbon Dioxide 27 mmol/L (22-30); Chloride 107 mmol/L (98-107); Estimated Creatinine Clearance 44 ml/min; Glucose 142 mg/dl (70-99); Potassium 4.6 mmol/L (3.5-5.1); Sodium 139 mmol/L (135-145); eGFR 58.75
[2024-12-13] MEDS: SYNTHROID 88 MCG PO (05:50)
--- NOTE | 2024-12-13 06:13 | PTCARENOTE ---
All systems reviewed, no change in assessment.
[2024-12-13] MEDS: ROXICODONE 5 MG PO (06:38)
[2024-12-13] MEDS: TYLENOL 650 MG PO ×2 (06:38→20:40)
[2024-12-13 07:27] LABS: Glucose - Point of Care 149 mg/dl (70-99)
--- NOTE | 2024-12-13 08:00 | CON.NEURO4 ---
Addendum entered and electronically signed by Angel Tee MD 12/13/24 10:36:
Studies reviewed.
I have personally examined the patient. I reviewed and agree with the INTEGRATION SOFTWARE DEVELOPER's Note.
My addenda:
Awake, alert, interactive. No acute distress.
Speech intact.
Follows 2-step requests w/o difficulty. No tremor.
Extra-ocular movements grossly intact.
Facial movements full and symmetric. Hearing intact to normal conversational volume.
Normal UE movements bilaterally.
Neck: full ROM.
Chest: no dyspnea
Heart: no JVD
Ext: (-) Clubbing, (-) Cyanosis, (-) Edema
IMPRESSIONS/RECOMMENDATIONS:
Abrupt onset of aphasia and left-sided weakness x 2 with complete resolution while patient was underdosed for anticoagulation due to needed surgical intervention
Continue apixaban, patient will have second dose of restart this morning
Check CTA (completed)
Physical therapy evaluations
Goal of normotension
Goal of normoglycemia
Attempt to reduce pain medication to ensure that this event was not associated with sedative effect although unlikely
LDL is profoundly low, continue Evolocumab as outpatient, continue rosuvastatin 20 mg, continue Ezetimibe; consideration for discontinuance of some of these therapies based on the relatively low cholesterol may be given as an outpatient
Begin vitamin B12 replacement which should be lifelong
D/W patient/ nursing
All questions answered.
Will continue to follow pending results.
Original Note:
Documented by User: Ashley Chatman NP 12/13/24 10:16
Consultation - Neurology 4
-
CONSULTING PHYSICIAN: Angel Tee MD
REFERRING PHYSICIAN: Vascular Surgery/AIRAM Yepez
DICTATED BY: AIRAM Singh
DATE/TIME OF REQUEST: 12/13/24
DATE/TIME OF CONSULTATION: 12/13/24
Reason for Consultation: Stroke Alert
History of Present Illness:
This is a 74-year-old right-handed female who has presented to the hospital on 12/11/24 for a left femoral artery bypass, she is POD 2. She is taking apixaban for Afib and this medication was held temporarily prior to her surgery, she resumed taking
it last evening (12/12/24). Nursing staff reports that the patient was last seen at her baseline at 0640 this morning when they gave her tylenol and oxycodone for LLE discomfort. At 0715 they went to check on her and noted that she wasn't able to
answer questions briskly as she had been previously doing, and she wasn't following commands on her left side. Upon further assessment they noted that she wasn't moving her left leg or able to lift her left arm. After 1-2 minutes this resolved and
she returned to her baseline. However, upon Vascular Surgery rounding several minutes later, the symptoms had again returned prompting a stroke alert to be activated. CT head and CTA head/neck were obtained and are negative for any acute
abnormalities. NIHSS is currently 0. She is not a candidate for TNK/IAT due to last dose of apixaban 12 hours ago, NIHSS 0, and no LVO. She denies any headache, dizziness, vision changes, speech/swallowing difficulty, numbness, and weakness.
Past Medical History: Paroxysmal Afib (apixaban), [place], HTN, HLD, CAD, aortic stenosis, NIDDM, hypothyroidism, CKD, acinar cell cancer of the pancreas, PAD, osteoarthritis
Surgical History: Distal pancreatectomy, splenectomy, CABG x2, RCA stent x2, thyroid nodule removed, R foot bunion/joint reconstruction, L foot bunion surgery, laparoscopic surgery for endometriosis, lymph node biopsy
Family History: Father- sudden cardiac age 39.
Social History: Denies tobacco, alcohol, and illicit drug use.
Allergies: Erythromycin, Augmentin, valsartan, adhesive
Home Medications: See below.
Review of Symptoms:
Patient denies any fever, headache, chest pain, shortness of breath, GI or symptoms.
�Per the HPI.�All systems are reviewed negative except above.
Physical Exam:
The patient is afebrile, abdomen is nondistended, breathing is unlabored, skin is cool and dry, DSD on LLE.
NIH Stroke Scale:
I performed the NIH stroke scale on the patient on 12/13/24 at 0800. The patient scored 0 points on the NIH stroke scale assessment, which were assigned as follows: See below.
Neurologic Examination:
The patient is awake, alert and oriented x 3. She is able to follow commands and answer questions appropriately. There is no aphasia or dysarthria. On cranial nerve assessment, pupils are 3 mm bilateral, round and reactive to light and
accommodation. Visual jim are full. Extraocular movements are intact. Facial sensations are intact and bilaterally symmetrical, there is no facial asymmetry. Hearing is intact bilaterally to normal conversation volume. Tongue palate and uvula are
midline. Sternocleidomastoid strengths are full bilaterally. Motor strengths are 5/5 bilateral upper, 5/5 RLE, and 2/5 left lower (limited due to surgical site pain) extremities on medical research [place] scale. There is no drift (LOR LLE) or
involuntary movement noted. Deep tendon reflexes are 2+ bilateral upper and right lower extremities (LOR left due to pain) and Babinski is absent bilaterally. There was no extinction noted on double simultaneous stimulation. Coordination is intact
by finger to nose bilaterally.
Lab Results: See below.
Neuro Imaging:
1. CT Head 12/13/24: No acute intracranial abnormality. ASPECT score: 10.
2. CTA Head/Neck 12/13/24: final read pending, per vascular surgery review- no LVO
Differentials for the patient's presentation include:
1. Transient left-sided weakness and asphasia; etiology concerning for TIA in the setting of holding anticoagulation, vs less likely metabolic disturbance due to recent narcotic usage.
Patient has the following risk factors for their symptoms: Held apixaban, HTN, HLD, Afib, NIDDM, age, surgery, narcotic usage
IV Tenecteplase/IAT candidacy: She is not a candidate for TNK/IAT due to last dose of apixaban 12 hours ago, NIHSS 0, and no LVO.
Recommendations:
-Continue apixaban. Aspirin continuation per Vascular Surgery, from neurology's perspective no need to continue aspirin.
-Goal normotension.
-LDL goal <70. LDL is 20. Continue home Repatha, rosuvastatin 20mg daily.
-Goal normoglycemia, hbA1c is 7.0.
-NIHSS and neurological checks per unit guidelines.
-Provide patient with a stroke education packet.
-PT/OT/ST evaluations.
Discussed patient care with: Dr. Tee, the patient, nursing staff.
Vital Signs and Labs
-
Vital Signs and Labs:
Vital Signs
Temp Pulse Resp BP Pulse Ox
98.8 F 58 18 179/62 92
12/13/24 07:29 12/13/24 09:28 12/13/24 06:00 12/13/24 09:28 12/13/24 05:00
Lab Results
12/13/24 03:36
12/13/24 03:36
PT 13.7 Sec (11.4-14.6) 12/12/24 04:24
INR 1.00 12/12/24 04:24
APTT 30.2 Sec (23.4-35.0) 12/12/24 04:24
Sodium 139 mmol/L (135-145) 12/13/24 03:36
Potassium 4.6 mmol/L (3.5-5.1) 12/13/24 03:36
BUN 24 mg/dl (7-17) H 12/13/24 03:36
Glucose 142 mg/dl (70-99) H 12/13/24 03:36
Calcium 9.1 mg/dl (8.4-10.2) 12/13/24 03:36
LDL Cholesterol, Calc 20 mg/dl 12/13/24 03:36
Vitamin B12 315 pg/ml (239-931) 12/13/24 03:36
Medications
-
Active Medications
Generic Name Dose Route Start Last Admin
Trade Name Freq PRN Reason Stop Dose Admin
Acetaminophen 650 mg 12/11/24 14:01 12/13/24 06:38
Acetaminophen 325 Mg Tablet PO 01/08/25 14:00 650 mg
Q4HPRN PRN Administration
mild pain or temp >/= 100.4F
Amlodipine Besylate 5 mg 12/12/24 08:00 12/13/24 09:28
Amlodipine 5 Mg Tablet PO 01/09/25 07:59 5 mg
DAILY KIMMY Administration
Apixaban 5 mg 12/12/24 20:00 12/13/24 09:27
Apixaban (Eliquis) 5 Mg Tablet PO 01/09/25 19:59 5 mg
BID KIMMY Administration
Aspirin 81 mg 12/12/24 10:00 12/13/24 09:27
Aspirin 81 Mg Chewable Tablet PO 01/09/25 09:59 81 mg
DAILY KIMMY Administration
Bisacodyl 10 mg 12/11/24 14:01
Bisacodyl 10 Mg Rectal Suppository RECTAL 01/08/25 14:00
DAILYPRN PRN
constipation
Calcium Carbonate 500 mg 12/11/24 18:00 12/12/24 18:17
Calcium Carbonate 500 Mg Tablet PO 01/08/25 17:59 500 mg
QPM KIMMY Administration
Cholecalciferol 20 mcg 12/11/24 18:00 12/12/24 18:16
Cholecalciferol (Vitamin D3) 10 Mcg Tablet (400 Units) PO 01/08/25 17:59 20 mcg
QPM KIMMY Administration
Dextrose 12.5 grams 12/11/24 15:20
Dextrose 50% (0.5 Grams/Ml) 50 Ml Syringe IV 01/08/25 15:19
[id number] PRN
hypoglycemia
Protocol
Ezetimibe 10 mg 12/11/24 18:00 12/12/24 18:16
Ezetimibe (Zetia) 10 Mg Tablet PO 01/08/25 17:59 10 mg
QPM KIMMY Administration
Glucagon 1 mg 12/11/24 15:20
Glucagon 1 Mg Vial IM 01/08/25 15:19
PRN PRN
hypoglycemia
Protocol
Hydromorphone HCl 0.5 mg 12/11/24 14:01 12/11/24 17:34
Hydromorphone 0.5 Mg/0.5 Ml Syringe IV 12/25/24 14:00 0.5 mg
Q4HPRN PRN Administration
severe pain
Insulin Aspart 0 units 12/11/24 16:30 12/13/24 09:25
Insulin Aspart Low Resistance 300 Units/3 Ml Pen.Injctr SC 01/08/25 16:29 1 units
AC KIMMY Administration
Protocol
Levothyroxine Sodium 88 mcg 12/12/24 06:00 12/13/24 05:50
Levothyroxine 88 Mcg Tablet PO 01/09/25 05:59 88 mcg
DAILY@0600 KIMMY Administration
Metoprolol Succinate 25 mg 12/12/24 08:00 12/13/24 09:27
Metoprolol 25 Mg Extended Release Tablet PO 01/09/25 07:59 25 mg
DAILY KIMMY Administration
Oxycodone HCl 5 mg 12/11/24 14:01 12/13/24 06:38
Oxycodone 5 Mg Regular Release Tablet PO 12/25/24 14:00 5 mg
Q4HPRN PRN Administration
moderate pain
Pantoprazole Sodium 20 mg 12/11/24 20:00 12/13/24 09:27
Pantoprazole 20 Mg Delayed Release Tablet PO 01/08/25 19:59 20 mg
BID KIMMY Administration
Rosuvastatin Calcium 20 mg 12/11/24 18:00 12/12/24 18:17
Rosuvastatin (Crestor) 20 Mg Tablet PO 01/08/25 17:59 20 mg
QPM KIMMY Administration
Home Medications
�Medication �Instructions �Recorded
amlodipine 5 mg tablet 5 mg PO DAILY 10/06/16
ezetimibe 10 mg tablet 10 mg PO QPM 10/06/16
rosuvastatin 20 mg tablet 20 mg PO QPM 10/06/16
apixaban 5 mg tablet (Eliquis) 5 mg PO BID 08/21/24
empagliflozin 25 mg tablet 25 mg PO DAILY 08/21/24
(Jardiance)
evolocumab 140 mg/mL subcutaneous 140 mg SC Q2W 08/21/24
syringe (Repatha Syringe)
acetaminophen 500 mg tablet 500 mg PO Q6H PRN pain 08/26/24
metoprolol succinate 25 mg 25 mg PO DAILY 08/26/24
tablet,extended release 24 hr
calcium 600 mg (as carbonate)-vit 1 tab PO QPM 11/05/24
D3 20 mcg (800 unit) chewable
tablet (Caltrate plus D)
levothyroxine 88 mcg tablet 88 mcg PO DAILY 11/05/24
(Synthroid)
mupirocin 2 % topical ointment 1 applic topical DAILY Left Great 11/05/24
pantoprazole 20 mg tablet,delayed 20 mg PO BID 11/05/24
release (Protonix)
NIH Stroke Score
Subsequent NIH Scale
Date of Subsequent NIH Scale: 12/13/24
Time of Subsequent NIH Scale: 08:00
NIH Stroke Score
Level of Consciousness: 0 - Alert
LOC Questions: 0-Answers both correctly
LOC Commands: 0-Performs both correctly
Best Horizontal Gaze: 0-Normal
Visual Jim: 0=Normal, no visual loss
Facial Palsy: 0=Normal, symmetrical
Motor - Right Arm: 0=No drift 10 seconds
Motor - Left Arm: 0=No drift 10 seconds
Motor - Right Le-No drift 5 seconds
Motor - Left Leg: UN-Amputation/jointfusion
Limb Ataxia: 0-Absent
Sensation: 0-Normal
Best Language: 0-No aphasia
Dysarthria: 0-Normal
Extinction and Inattention: 0-No abnormality
NIH Total Score:: 0
Modified Manning (mRS) Score
Modified Yehuda Scale (mRS): No symptoms
Score: 0
Alteplase Contraindication
Reasons for NON-Tx with Thrombolytics ABSOLUTE Exclusions: Patient taking oral anticoagulant and last dose within 48 hours

Documented by User: Angel Tee MD 12/13/24 10:27
NIH Stroke Score
NIH Stroke Score
NIH Total Score:: 0
Modified Manning (mRS) Score
Score: 0
Past History
Past History
ED Past Medical History: Arrthythmia (Atrial fibrillation), Cancer (Acinar cell cancer of the pancreas), HTN, Hypercholesterolemia, NIDDM, Hypothyroidism and Other (Peripheral arterial disease, osteoarthritis); Negative Renal failure (CKD)
ED Past Surgical History: Cardiac (CABG x 2), Gynecological (Laproscopic surgery for endometriosis) and Other (Lymph node biopsy, splenectomy, distal pancreectomy, RCA stent x 2, thyroid nodule removal, left bunionectomy)
Social History
Tobacco: Non-smoker
Alcohol: None
Personal:
Living: with family
Employment: Retired
Family History
Family History: Other (Noncontributory)
Medications
-
Medications:
Generic Name Dose Route Start Last Admin
Trade Name Freq PRN Reason Stop Dose Admin
Acetaminophen 650 mg 12/11/24 14:01 12/13/24 06:38
Acetaminophen 325 Mg Tablet PO 01/08/25 14:00 650 mg
Q4HPRN PRN Administration
mild pain or temp >/= 100.4F
Amlodipine Besylate 5 mg 12/12/24 08:00 12/13/24 09:28
Amlodipine 5 Mg Tablet PO 01/09/25 07:59 5 mg
DAILY KIMMY Administration
Apixaban 5 mg 12/12/24 20:00 12/13/24 09:27
Apixaban (Eliquis) 5 Mg Tablet PO 01/09/25 19:59 5 mg
BID KIMMY Administration
Aspirin 81 mg 12/12/24 10:00 12/13/24 09:27
Aspirin 81 Mg Chewable Tablet PO 01/09/25 09:59 81 mg
DAILY KIMMY Administration
Bisacodyl 10 mg 12/11/24 14:01
Bisacodyl 10 Mg Rectal Suppository RECTAL 01/08/25 14:00
DAILYPRN PRN
constipation
Calcium Carbonate 500 mg 12/11/24 18:00 12/12/24 18:17
Calcium Carbonate 500 Mg Tablet PO 01/08/25 17:59 500 mg
QPM KIMMY Administration
Cholecalciferol 20 mcg 12/11/24 18:00 12/12/24 18:16
Cholecalciferol (Vitamin D3) 10 Mcg Tablet (400 Units) PO 01/08/25 17:59 20 mcg
QPM KIMMY Administration
Dextrose 12.5 grams 12/11/24 15:20
Dextrose 50% (0.5 Grams/Ml) 50 Ml Syringe IV 01/08/25 15:19
[id number] PRN
hypoglycemia
Protocol
Ezetimibe 10 mg 12/11/24 18:00 12/12/24 18:16
Ezetimibe (Zetia) 10 Mg Tablet PO 01/08/25 17:59 10 mg
QPM KIMMY Administration
Glucagon 1 mg 12/11/24 15:20
Glucagon 1 Mg Vial IM 01/08/25 15:19
PRN PRN
hypoglycemia
Protocol
Hydromorphone HCl 0.5 mg 12/11/24 14:01 12/11/24 17:34
Hydromorphone 0.5 Mg/0.5 Ml Syringe IV 12/25/24 14:00 0.5 mg
Q4HPRN PRN Administration
severe pain
Insulin Aspart 0 units 12/11/24 16:30 12/13/24 09:25
Insulin Aspart Low Resistance 300 Units/3 Ml Pen.Injctr SC 01/08/25 16:29 1 units
AC KIMMY Administration
Protocol
Levothyroxine Sodium 88 mcg 12/12/24 06:00 12/13/24 05:50
Levothyroxine 88 Mcg Tablet PO 01/09/25 05:59 88 mcg
DAILY@0600 KIMMY Administration
Metoprolol Succinate 25 mg 12/12/24 08:00 12/13/24 09:27
Metoprolol 25 Mg Extended Release Tablet PO 01/09/25 07:59 25 mg
DAILY KIMMY Administration
Oxycodone HCl 5 mg 12/11/24 14:01 12/13/24 06:38
Oxycodone 5 Mg Regular Release Tablet PO 12/25/24 14:00 5 mg
Q4HPRN PRN Administration
moderate pain
Pantoprazole Sodium 20 mg 12/11/24 20:00 12/13/24 09:27
Pantoprazole 20 Mg Delayed Release Tablet PO 01/08/25 19:59 20 mg
BID KIMMY Administration
Rosuvastatin Calcium 20 mg 12/11/24 18:00 12/12/24 18:17
Rosuvastatin (Crestor) 20 Mg Tablet PO 01/08/25 17:59 20 mg
QPM KIMMY Administration
--- NOTE | 2024-12-13 08:15 | PTCARENOTE ---
Rec'd pt at 0710 - went to check pulses at change of shift with off going RN. Rec'd pt dozing initially s/p Tylenol and Roxicodone at 0642 but awakened to verbal stimuli. While pt did awaken she was slow to answer and gave only one or two word
answers and just seemed off. Thought at first might have a facial droop at rest but then when awake Smile was even and tongue protruded midline. Speech was clear although limited. AMBROSE at 3mm. Denied dizziness or headache. When asked to lift her
arms she readily lifted her R arm but not the Left and the same with her L leg but admitted she could feel me touching both. After about 2 minutes she was able to GRIFFITH and handgrasps which at first the L seemed weaker than the R were then equal and
overall after 2-3 minutes pt was somewhat more interactive and more like herself per the off going RN. Stated that her Roxicodone helped her pain somewhat but could not give me a rating. Overall said she was just really tired and that she hasn't
gotten much sleep. Allowed pt to continue resting then at 0745 Dr. Wright in to see pt and pt again with similar symptoms/issues to of not being able to lift her L arm or leg and slowness to answer questions- Per vascular Stroke alert called and CT/ CT
angio of the Head ordered. Neuro in and again within a few minutes more wakeful and able to start moving arms and legs and then fully move L arm and L leg although limited due to pain/surgery on the L leg. NIH overall was a 0 although does have some
L arm and L leg weakness although no drift noted. Speech is clear and appropriate. Taken for CT of the Head with Dr. Tee in attendance. Skin is pink wm and dry. L leg with 3 incisions as noted. L groin/thigh/Calf all with Primaseal dressings that
are intact although have drainage on them. L great toe with bandaid. Respirs are unlabored on RA with sats of 94%. BS are minimally decreased at the bases. Monitor AFlutter with isolated PVC's. + palpable pulses L DP weak to palp. L PT normal. LLE
is warm with +1 edema. Does admit to pain in the L leg although states now it is mostly with movement. Denies numbness or tingling. VS as documented. ECG done post CT scan and accuchecks 149 at [address] scan[address] Abd is soft with + BS. Did
admit to some mild nausea. Denies need void. Capped ints intact R wrist and L AC. Sites wnl. Pt repositioned. Call polanco in reach.
[2024-12-13 08:29] LABS: Glucose - Point of Care 152 mg/dl (70-99)
[2024-12-13 08:31] LABS: HDL Cholesterol 70 mg/dl; LDL Cholesterol, Calculated 20 mg/dl; Very Low Density Lipoprotein 8 mg/dl (0-30)
--- NOTE | 2024-12-13 08:32 | W.PN.VS ---
Addendum entered and electronically signed by Milan Wright MD 12/13/24 08:54:
Seen and examined with MARINE METEOROLOGIST Landon. Agree with findings as noted below. When we went in to examine her, she had been sleeping, we woke her up and she was very slow waking up. Her speech seemed off and slow although she was fluent when she spoke. No
garbling. She was completely oriented when I asked her. Per nursing she was like that earlier and it was attributed to her receiving narcotic for pain. When we examined her her left arm and leg were weak to examination. Initially she was not
moving her left leg at all, and even her left arm to command. However as she arouses more she slowly started moving it initially wiggling the toes, and then she was able to fully raise her left arm against gravity, and move her foot fully and bend
her left knee as well. Regardless given the findings we called a stroke alert. (Of note her vascular exam was stable with soft thigh and calf, dressings clean dry and intact, no hematoma, good distal perfusion with palpable PT pulse). Discussed
case with neurologist. She was taken for CAT scan immediately. I reviewed her CAT scan studies. No evidence of intracranial acute process on CT head. CT angiogram of head and neck demonstrates no evidence of significant arterial occlusion or
stenosis. Her carotid bifurcations look okay with no significant stenosis. No embolic cutoff is noted. Exam significantly improved overall as well. Unclear etiology here. Possible TIA event. She is back on her anticoagulation (A-fib history).
updated as well. Will continue to closely monitor.
Original Note:
Today's Communication / Plan
-
Patient seen and examined at bedside with Dr. Milan Wright M.D., below plan reviewed with attending.
Assessment/Plan
-
Assessment: 74 year old female POD#2 Left [id number]-[id number] popliteal artery to posterior tibial artery bypass with ipsilateral nonreversed greater saphenous vein conduit.
Plan:
Given acute onset of left-sided weakness, stroke alert was immediately activated by this provider and neurology presented bedside for consultation. Stat CTA head and neck with a CT noncontrast ordered.
Cardiology following for Nonsustained ventricular tachycardia seen on telemetry yesterday, patient on home beta-moe appreciate recommendations
Patient reinitiated on home Eliquis, will continue
Continue ICU level care today in light of nonsustained V. tach and stroke alert activation
Continue neurovascular/neuro checks
Continue encourage incentive spirometry
PT consultation today, ambulation as tolerated
Subjective Data
-
Date of Service: December 13, 2024
Patient seen and examined at bedside, was asleep and aroused by myself and attending Dr. Milan Wright M.D. upon awakening patient indicated she felt 'slow.' She easily identified location, time, and person. However, when asked to move left leg and
arm patient was profoundly weak and unable to move. Face symmetrical and tongue midline. No aphasia identified but speech was slow. Over the 5 minutes of examining patient and activating stroke alert she began to slowly move left leg and left arm
with equal strength to right side.
Objective Data
-
Vital Signs
Temp Pulse Resp BP Pulse Ox
98.8 F 70 18 153/50 92
12/13/24 07:29 12/13/24 06:00 12/13/24 06:00 12/13/24 06:00 12/13/24 05:00
Intake and Output
12/12/24 12/13/24 12/14/24
06:59 06:59 06:59
Intake Total 1880 / 1960 680 / 680
Output Total 1735 / 1775 1615 / 1615
Balance 145 / 185 -935 / -935
Intake:
Oral fluids 490 / 490 480 / 480
IV fluids (Total) 1390 / 1470 200 / 200
Normosol 350 / 350
Nss 1,000 ml @ 80 mls/hr IV . 1040 / 1120 200 / 200
[id number] KIMMY Rx#:[id number]
Output:
Urine, Vicente 1535 / 1575 240 / 240
Urine, Voided 200 / 200 1375 / 1375
Other:
Number of approximated MODERATE 1
amounts of urine
Lab Results
12/13/24 03:36
12/13/24 03:36
Calcium 9.1 mg/dl (8.4-10.2) 12/13/24 03:36
Magnesium 2.4 mg/dl (1.6-2.3) H 12/12/24 15:08
Physical Exam
-
No apparent distress, resting in bed comfortably
No tachycardia
No dyspnea on room air
Left lower extremity bypass site dressing dry and intact, no evidence of hematoma, +1 edema at left leg, left foot warm, palpable PT pulse at left foot
Initially upon assessment patient was unable to move left arm and leg to command or spontaneously, she slowly began to increase movement but initially weaker compared to right
[2024-12-13 09:07] LABS: Ferritin 194.0 ng/ml (11.1-264.0)
[2024-12-13] MEDS: NOVOLOG FLEXPEN-LOW RESISTANCE 1 UNITS SC ×2 (09:25→14:11)
[2024-12-13] MEDS: TOPROL XL 25 MG PO (09:27)
[2024-12-13] MEDS: LOW STRENGTH ASPIRIN 81 MG PO (09:27)
[2024-12-13] MEDS: PROTONIX 20 MG PO ×2 (09:27→20:40)
[2024-12-13] MEDS: ELIQUIS 5 MG PO ×2 (09:27→20:40)
[2024-12-13] MEDS: NORVASC 5 MG PO (09:28)
--- NOTE | 2024-12-13 09:30 | PTCARENOTE ---
Assessment is unchanged. Assisted oob to the [facility] to void and then to the chair. Extremely weak with moving- especially using her L leg. Can bear some wt- holding on to a walker but only minimally moves L leg for transfer and needed direction to move
her R leg. Voided yellow urine on the commode and is currently in the chair eating breakfast. Call polanco in reach.
[2024-12-13 09:38] LABS: Folate 8.3 ng/ml (2.76-20); Vitamin B12 315 pg/ml (239-931)
--- NOTE | 2024-12-13 10:15 | PTCARENOTE ---
Sitting oob- Neuro checks as noted. No complaints currently. in to see pt. Affect overall is flat but will answer questions and is appropriate. L arm is sl weaker than the R arm with lifting it and grasp but is able to GRIFFITH. L leg remains
weaker than the R but is able to move it.
--- NOTE | 2024-12-13 10:42 | W.PN.INTV ---
Today's Communication / Plan
Recommendations
- Continue to monitor on telemetry
- Activity as tolerated
- Apn service will sign off once patient is transferred out of ICU
Assessment
-
Patient is a 74-year-old female with history of peripheral vascular disease s/p left lower extremity above-knee popliteal to posterior tibial artery bypass with saphenous vein graft by vascular surgery service, POD #2
Continue observation following procedure
Follow neurovascular checks per protocol
Currently on Zetia, rosuvastatin, p.o. ASA and Eliquis
Currently saturating 93% on room air, MAP is normal. Not on any infusions.
Follow BP monitoring and parameters as set by primary team
Cardiac history reviewed, known history of coronary artery disease, PCI, CABG and atrial fibrillation
Monitor on telemetry
Pain control per protocol
RASS goal 0
No prior history of pulmonary disease, no prior history of smoking.
CXR reviewed indicating no acute disease
No prior PFTs for review
Encouraged IS
Diet advancement per protocol
Aspiration precautions
GI prophylaxis: Protonix
Cr at baseline, follow UO
Critical I/Os
Void trials
Replete electrolytes as needed
No signs/symptoms suspicious for infectious etiology at this time
Will observe off antibiotics for now
Follow temperatures/CBC
Hb and platelets postoperatively stable
DVT prophylaxis: Eliquis now
Other medical diagnoses:
- CAD, s/p CABG 1991, PCI 2016. Currently on ASA, metoprolol and statins.
- Moderate Aortic stenosis
- Chronic Atrial Fibrillation. Currently on metoprolol, Eliquis resumed per vascular surgery service
- Hyperlipidemia. on Repatha, Zetia and Crestor
- HTN
- Hypothyroidism
- History of pancreatic cancer, status poor partial pancreatectomy and splenectomy
- NSVT 12/12. Cardiology service on case. Metoprolol PO. K is above 4 and Mg above 2. Telemetry monitoring. LVEF 60-65^ in 10/2024.
- Brief aphasia 12/13. ? TIA vs related to narcotics. CT Head/CTA negative. Neurology service on case. ASA/Eliquis currently on. Also Statins.
Critical Care time 38 mins -- The patient is admitted for acute critical illness for the treatment of vital organ failure and/or prevention of further life-threatening conditions. Total care includes time spent in review of history, physical exam,
medications, hemodynamic/ventilator parameters, laboratory data, imaging and discussion with house staff, pharmacy, respiratory therapy, diversified crops farmer, and nursing
Data:
CXR 11/2024: Mild to moderate cardiomegaly
Subjective Dataa
Subjective Data
Date of Service:
Date of Service: December 13, 2024
Subjective:
Patient comfortably sitting in bed in no acute distress.
Review of Systems
Genitourinary: Other (All 14 systems reviewed and negative except as stated above in the history of present illness.)
Objective Data
Data Reviewed
Vital Signs / I&O / Oxygen:
Vital Signs
Temp Pulse Resp BP Pulse Ox
98.8 F 58 18 179/62 92
12/13/24 07:29 12/13/24 09:28 12/13/24 06:00 12/13/24 09:28 12/13/24 05:00
Intake and Output
12/12/24 12/13/24 12/14/24
06:59 06:59 06:59
Intake Total 1880 / 1960 680 / 680
Output Total 1735 / 1775 1615 / 1615
Balance 145 / 185 -935 / -935
SaO2 92
Nasal Cannula flow liters per 2
minute
Physical Exam
General: Comfortable
HEENT: Normocephalic
Cardiovascular: S1-S2
Respiratory: Clear and Non-Labored Respirations
GI: Soft and Non Distended
Neurology: Awake and Alert
Skin: Warm
Labs/Micro/Reports
Lab Data
12/13/24 03:36
12/13/24 03:36
--- NOTE | 2024-12-13 11:15 | PTCARENOTE ---
Again had fallen asleep and was listing to the side in the chair. Mostly to the L side but this time to the R side. When awakened to verbal stimuli again issues with being able 'focus' int the sense that she can answer questions appropriately and
speech is clear but needs frequent request and more wakefulness to perform tasks that are asked. Can move her R arm and R leg but again initally not her L arm and L leg. After about 2 minutes and multiple requests did lift her L arm just not as high
as the R and L grasp weaker than the R. Does have a sl drift with the L. L leg can move but better if it is hanging down vs up on the chair but in general has discomfort is moved too much. L leg dressings are unchanged- old drainage on the
dressings. Denies dizziness or headache but admits to fogginess. AMBROSE at 3mm. Dr. Nye in to see pt and Dr. Tee in to see pt. NIH is a 2 currently. at the bedside and also verbalized that this is not at all normally her. Call collin in
reach.
--- NOTE | 2024-12-13 11:44 | W.PN.CARDCBS ---
Addendum entered and electronically signed by Bernabe Whitaker MD 12/13/24 12:39:
I saw and examined the patient.
The TRANSPORTATION ENGINEER or PA's note was reviewed and I agree with the note.
Comment: General: Well developed, well nourished in NAD.
Neck: Supple, no JVD, HJR, carotids +2 B/L, no bruits bilaterally.
Heart: Non displaced PMI, RRR, no murmurs, No S3, S4, no rubs.
Lungs: Clear to auscultation bilaterally, no wheeze, rhonchi, rubs bilaterally,
normal expiratory phase.
Extremities: No clubbing, cyanosis or edema bilaterally.
Neuro: Grossly nonfocal, awake, alert and oriented x3.
No further VT with restarting Toprol. Neurology evaluating for left-sided weakness. She is to follow-up with outpatient technology teacher to consider ischemic evaluation. Recent echocardiogram with normal LV function.
Original Note:
Today's Communication / Plan
-
neuro w/u in process for intermittant L sided weakness
no recurrent NSVT on telem, continue Toprol
ischemic w/u and monitor after discharge
Impression / Plan
-
PCP: Aston Valdez
Prim technology teacher: [facility], last seen by Pearl ALEGRIA
Impression:
NSVT on telemetry
h/o CAD s/p CABG and stenting
h/o PAD s/p L [id number] popliteal artery to posterior tibial artery bypass with ipsilateral nonreversed greater saphenous vein conduit for history of nonhealing left foot wound on 12/11/2024
Aphasia and left-sided weakness 12/13/24, concern for TIA
mod
mod MR
normal LV function on echo 11/27/2024
Permanent atrial fibrillation
Familial hyperlipidemia
Hypertension
History of pancreatic cancer status post partial pancreatectomy and splenectomy
hypothyroidism
Previous cardiovascular testing:
Echo 11/27/2024: normal LV size and function EF 60 to 65%, moderate , mild to moderate AI, moderate MR.
Plan:
NSVT
-26 beats on 12/12/2024, asymptomatic, no reoccurrence as of 12/13/2024
-K and Mag remain WNL K 4.6, was Mag 2.4 12/12
-trop 0.019
-recent echo stable with nl LV fxn, and stable mod /MR
-has not had recent ischemic workup, consider nuclear stress test after discharge through primary technology teacher, cardiac cath if recurrent NSVT
-would also check outpt holter monitor
-Toprol held a.m. 12/12 due to HR 48 bpm, resumed home dose Toprol 25 mg daily after episode NSVT
-cont daily Toprol
-cont telem monitoring
-telem personally reviewed: afib, 57-71 bpm,occ PVC
h/o CAD
- s/p CABG x 2 1991, SERRANO to LAD, SVG to circumflex. Recurrent angina 2015- had occluded vein graft to circumflex marginal, total occlusion second obtuse marginal with collaterals, 95% lesion proximal RCA-tx w/ rotational atherectomy and TANYA. She
had residual 70% ostial left main stenosis. Recurrent angina 2016 with in-stent restenosis of the RCA treated with TANYA.
-no anginal symptoms currently or preoperatively
-no recent ischemic workup, consider in outpt setting due to post op NSVT
-on beta moe, statin, zetia, PCSK9 tx. On eliquis, ASA
permanent afib
- Diagnosed 2017
[id number] score 5 (age, HTN, PAD, DM)
- On OAC with Eliquis 5 mg twice daily,med was restarted postoperatively on 12/12/2024 PM dose. Pt was off Eliquis temporarily prior to surgery.
- Has been on Toprol, dose decreased from 50 to 25 mg in early 2024 due to complaints of lightheadedness. Lightheadedness has resolved on lower dose.
- cont Toprol 25 mg daily
HTN
-controlled on Amlodipine and Toprol
Familial hypercholesterolemia
-on Repatha, Crestor, Zetia
-LDL 20 12/13/2024
transient L sided weakness
- Had episode of transient left-sided weakness 12/13/2024 this morning. Stroke alert called and pt seen by neuro: head CT with no acute intracranial abnormality and CTA head and neck negative
- When I saw patient around 11am she was again experiencing left-sided weakness and could not initially follow commands to elevate left arm or wiggle toes in L foot although she eventually did. present at bedside and reports she has been
drowsy/staring all morning. Already seen by neurology and reconsulted, plan for MRI brain.
-back on Eliquis as of 12/12 PM (held preop) and also on ASA, started
Progress Note - Medical Unit Secretary
Subjective
Date of Service: December 13, 2024
no recurrent NSVT
episode transient L sided weakness this am - stroke alert called - CT head, CTA head/neck without acute process or signif aterial occlusion or stenosis. Symptoms improved but with recurrent L sided weakness now. Getting brain MRI
Objective
Labs:
12/13/24 03:36
12/13/24 03:36
Labs
Hgb 12.4 g/dL (12.0-16.0) 12/13/24 03:36
Hct 37.9 % (37.0-47.0) 12/13/24 03:36
Plt Count 191 10^3/uL (130-400) 12/13/24 03:36
PT 13.7 Sec (11.4-14.6) 12/12/24 04:24
INR 1.00 12/12/24 04:24
APTT 30.2 Sec (23.4-35.0) 12/12/24 04:24
Sodium 139 mmol/L (135-145) 12/13/24 03:36
Potassium 4.6 mmol/L (3.5-5.1) 12/13/24 03:36
BUN 24 mg/dl (7-17) H 12/13/24 03:36
Creatinine 1.0 mg/dL (0.6-1.0) 12/13/24 03:36
Glucose 142 mg/dl (70-99) H 12/13/24 03:36
Troponins
12/12/24
15:46
Troponin I 0.019
Vital Signs and I&O:
Vital Signs
Temp Pulse Resp BP Pulse Ox
98.8 F 58 18 179/62 92
12/13/24 07:29 12/13/24 09:28 12/13/24 06:00 12/13/24 09:28 12/13/24 05:00
Vital Signs
Temp Pulse Resp BP Pulse Ox
98.8 F 58 18 179/62 92
12/13/24 07:29 12/13/24 09:28 12/13/24 06:00 12/13/24 09:28 12/13/24 05:00
Intake & Output
12/11/24 12/12/24 12/13/24 12/14/24
06:59 06:59 06:59 06:59
Intake Total 1880 / 1960 680 / 680
Output Total 1735 / 1775 1615 / 1615
Balance 145 / 185 -935 / -935
--- NOTE | 2024-12-13 12:10 | PTCARENOTE ---
Assisted on to the commode to void. Needs much assistance to stand and move even with the walker. Can bear some weight but is hesitant to do so with her L leg. Did more of a stand/pivot. Voided yellow urine. VS as documented.
--- NOTE | 2024-12-13 12:10 | PTCARENOTE ---
Admits to L leg discomfort but mostly just with movement not at rest. Did not want anything for pain currently
[2024-12-13 12:20] LABS: Glucose - Point of Care 160 mg/dl (70-99)
--- NOTE | 2024-12-13 13:15 | PTCARENOTE ---
Continues to have episodes of dozing off then listing to the side -will awaken to verbal stimuli but delayed time to process moving her L arm and L leg. Will answer questions appropriately but can be slow and deliberate. Pt admits she feels 'fuzzy'
in her head like she can't concentrate. Speech is clear and is GRIFFITH but again L arm - handgrasp is weaker on the L than the R and still does have a drift. L leg -difficulty moving it when it is upright on the chair but is able to move it when it is
hanging down/seated with legs on the ground. at the bedside. VS as documented. No other changes.
[2024-12-13] MEDS: VITAMIN B-12 1000 MCG PO (14:11)
--- NOTE | 2024-12-13 14:15 | PTCARENOTE ---
Overall good appetite for lunch. Assessment unchanged. Had a brief episode for her that she forgot where she was but then remembered quickly. Currently PT and OT in to work with pt
[2024-12-13 14:22] LABS: Glucose - Point of Care 184 mg/dl (70-99)
--- NOTE | 2024-12-13 14:45 | PTCARENOTE ---
PT and OT in to work with pt. Still continues to list mostly to the L side-will attempt to straighten herself but cannot fully do it. OT also noted some neglect in that she will track to the L side but not fully before she comes back to midline.
AMBROSE at 3mm. Speech remains clear. Occasionally seems like she has a facial droop at rest but then smile is even and tongue is midline. L arm movement and grasp remain weaker than the R. Pt is able to use her phone and was texting and conversation
is appropriate. L leg is unchanged. Assisted back on to the commode with much assistance and then back to bed. Awaiting MRI later today.
--- NOTE | 2024-12-13 15:15 | PTCARENOTE ---
Complete CHG bath given
--- NOTE | 2024-12-13 16:07 | PTOTSP ---
Speech Therapy Evaluation:
Pt with acute risk factor of dysphagia including c/f CVA, however oropharyngeal swallow appeared functional at bedside. No overt s/sx of aspiration across trials, CXR without pneumonia, WBC WNL, and pt without dysphagia hx.
Recommend:
1. Regular solids and thin liquids
2. Medications as tolerated
3. General aspiration precautions
4. PLANT OPERATIONS VICE PRESIDENT to briefly follow for swallowing
5. PLANT OPERATIONS VICE PRESIDENT to follow to determine if pt would benefit from further cognitive assessment pending
--- NOTE | 2024-12-13 16:31 | CM ---
PT OT indicate acute rehab .
Nola Amador will follow on Monday to see if patient appropriate for acute rehab.
GEOFFREY will follow to see if patient interested in acute rehab.
PLAN Discharge plan ongoing
[2024-12-13] MEDS: ZETIA 10 MG PO (17:18)
[2024-12-13] MEDS: CRESTOR 20 MG PO (17:18)
[2024-12-13] MEDS: VITAMIN D3 (cholecalciferol) 20 MCG PO (17:18)
[2024-12-13] MEDS: OSCAL CAL 500 500 MG PO (17:20)
[2024-12-13] MEDS: ATIVAN 1 MG PO (17:21)
--- NOTE | 2024-12-13 17:40 | PTCARENOTE ---
Overall assessment is unchanged. Mostly awake or if dozing awakens to verbal stimuli. Oriented. Speech clear. Movement is unchanged. Still with L arm and L leg weakness and L arm sl drift. At rest can move her leg but assisted back oob to the BSC
and can barely move leg to get on the commode. Need very much direction even to move her R leg which she can move. Ativan 1 mg po given per MRI as pt was worried about getting claustrophobic in the MRI. L leg dressings with large amt of drainage on
L groin upper leg dressing but intact. L thigh and calf dressing with some increased drainage but also intact. Pulses unchanged. Pt currently taken to MRI for MRI of the Head.
--- NOTE | 2024-12-13 18:20 | PTCARENOTE ---
Returned from MRI. No changes in assessment. Neuro assessment is unchanged
[2024-12-13] MEDS: NOVOLOG FLEXPEN-LOW RESISTANCE SC (18:42)
[2024-12-13 18:52] LABS: Glucose - Point of Care 110 mg/dl (70-99)
--- NOTE | 2024-12-13 21:25 | PTCARENOTE ---
Assumed care of patient at 1999. Pt AOx3, bedside, [facility] done, scored a 4 for drift in left leg and some minor drifting/weakness in left arm. Patients neurovascular checks unchanged from previous shift, assessment done, see flowsheets. Call
polanco within reach, will continue to monitor. VSS.
[2024-12-13 22:01] LABS: Glucose - Point of Care 173 mg/dl (70-99)
[2024-12-14] VITALS (23 sets, daily range): BP systolic 108–157; BP diastolic 42–77; PULSE 67; O2SAT 96
[2024-12-14] MEDS: SYNTHROID 88 MCG PO (04:37)
[2024-12-14 05:22] LABS: Hematocrit 36.2 % (37.0-47.0); Hemoglobin 12.0 g/dL (12.0-16.0); Mean Corp Hgb Conc. 33.1 g/dL (33.0-37.0); Mean Corpuscular Volume 96.8 fL (81.0-99.0); Platelet Count 180 10^3/uL (130-400); Red Cell Dist. Width 13.9 % (11.5-14.5)
[2024-12-14 05:48] LABS: Blood Urea Nitrogen 16 mg/dl (7-17); Calcium 8.9 mg/dl (8.4-10.2); Carbon Dioxide 25 mmol/L (22-30); Chloride 107 mmol/L (98-107); Estimated Creatinine Clearance 55 ml/min; Glucose 122 mg/dl (70-99); Magnesium 2.2 mg/dl (1.6-2.3); Potassium 4.4 mmol/L (3.5-5.1); Sodium 139 mmol/L (135-145); eGFR > 60.00
--- NOTE | 2024-12-14 07:47 | W.PN.VS ---
Today's Communication / Plan
-
as above
Assessment/Plan
-
Assessment: 74 year old female POD#3 Left capyw-frw-boxn popliteal artery to posterior tibial artery bypass with ipsilateral nonreversed greater saphenous vein conduit.
Plan:
MRI with small acute CVA. Appreciate neurology recs
Cardiology following for Nonsustained ventricular tachycardia seen on telemetry yesterday, patient on home beta-moe appreciate recommendations
Patient reinitiated on home Eliquis, will continue
Continue ICU level care today in light of nonsustained V. tach and stroke alert activation
Continue neurovascular/neuro checks
Continue encourage incentive spirometry
OOB
Subjective Data
-
Date of Service: December 14, 2024
No acute events. No further TIA episodes
Objective Data
-
Vital Signs
Temp Pulse Resp BP Pulse Ox
98.3 F 70 18 142/64 95
12/14/24 07:32 12/14/24 06:00 12/14/24 06:00 12/14/24 06:00 12/14/24 06:00
Intake and Output
12/13/24 12/14/24 12/15/24
06:59 06:59 06:59
Intake Total 680 / 680 900 / 900
Output Total 1615 / 1615 2149 / 215
Balance -935 / -935 -1250 / -1250
Intake:
Oral fluids 480 / 480 900 / 900
IV fluids (Total) 200 / 200
Nss 1,000 ml @ 80 mls/hr IV . 200 / 200
[id number] KIMMY Rx#:[id number]
Output:
Urine, Vicente 240 / 240
Urine, Voided 1375 / 1375 2150 / 2150
Other:
Number of approximated MODERATE 1
amounts of urine
How many times incontinent 1
SATURATED amount urine
Lab Results
12/14/24 04:36
12/14/24 04:36
Calcium 8.9 mg/dl (8.4-10.2) 12/14/24 04:36
Magnesium 2.2 mg/dl (1.6-2.3) 12/14/24 04:36
Physical Exam
-
NAD
Incisions with some ooze but clean and intact
foot warm, +2PT pulse
[2024-12-14] MEDS: TOPROL XL 25 MG PO (08:00)
[2024-12-14] MEDS: PROTONIX 20 MG PO ×2 (08:00→19:08)
[2024-12-14] MEDS: ELIQUIS 5 MG PO ×2 (08:01→19:08)
[2024-12-14] MEDS: NORVASC 5 MG PO (08:01)
[2024-12-14] MEDS: VITAMIN B-12 1000 MCG PO (08:01)
[2024-12-14] MEDS: LOW STRENGTH ASPIRIN 81 MG PO (08:01)
[2024-12-14 08:09] LABS: Glucose - Point of Care 121 mg/dl (70-99)
[2024-12-14] MEDS: NOVOLOG FLEXPEN-LOW RESISTANCE SC ×2 (08:11→17:41)
[2024-12-14] MEDS: TYLENOL 650 MG PO ×2 (08:43→21:10)
--- NOTE | 2024-12-14 09:13 | PTCARENOTE ---
pt aaox3. nihss done with shift manager rn. left leg weak. left leg dressings changed by surgery oozing bloody drainage. reinforced. pt states 3/10 pain in left leg pain med given as ordered
--- NOTE | 2024-12-14 09:53 | W.PN.INTV ---
Addendum entered and electronically signed by Cornelio Nye MD 12/15/24 07:51:
Patient transferring out of ICU
Crime Scene Photographer service will sign off, please call as needed.
Original Note:
Today's Communication / Plan
Recommendations
- Incentive spirometry
- Increase activity as tolerated
- Continue telemetry monitoring
- Crime Scene Photographer service will sign off once patient is transferred out of ICU
Assessment
-
Patient is a 74-year-old female with history of peripheral vascular disease s/p left lower extremity above-knee popliteal to posterior tibial artery bypass with saphenous vein graft by vascular surgery service, POD #3
Continue observation following procedure
Follow neurovascular checks per protocol.
Currently on Zetia, rosuvastatin, p.o. ASA and Eliquis
Currently saturating 96% on room air, MAP 86. Not on any infusions.
Follow BP monitoring and parameters as set by primary team
Cardiac history reviewed, known history of coronary artery disease, PCI, CABG and atrial fibrillation
Monitor on telemetry
Pain control per protocol
RASS goal 0
No prior history of pulmonary disease, no prior history of smoking.
CXR reviewed indicating no acute disease
No prior PFTs for review
Encouraged IS
Diet advancement per protocol
Aspiration precautions
GI prophylaxis: Protonix
Cr at baseline, follow UO
Critical I/Os
Void trials
Replete electrolytes as needed
No signs/symptoms suspicious for infectious etiology at this time
Will observe off antibiotics for now
Follow temperatures/CBC
Hb and platelets postoperatively stable
DVT prophylaxis: Eliquis now
Other medical diagnoses:
- CAD, s/p CABG 1991, PCI 2016. Currently on ASA, metoprolol and statins.
- Moderate Aortic stenosis
- Chronic Atrial Fibrillation. Currently on metoprolol, Eliquis resumed per vascular surgery service
- Hyperlipidemia. on Repatha, Zetia and Crestor
- HTN
- Hypothyroidism
- History of pancreatic cancer, status poor partial pancreatectomy and splenectomy
- Paroxysmal NSVT 12/12. Cardiology service on case. Metoprolol PO. K is above 4 and Mg above 2. Telemetry monitoring. LVEF 60-65^ in 10/2024.
- Brief aphasia 12/13 with Acute CVA, confirmed on MRI. Currently on ASA/Eliquis and statins. Neurology service on case.
Critical Care time 40 mins -- The patient is admitted for acute critical illness for the treatment of vital organ failure and/or prevention of further life-threatening conditions. Total care includes time spent in review of history, physical exam,
medications, hemodynamic/ventilator parameters, laboratory data, imaging and discussion with house staff, pharmacy, respiratory therapy, hydraulic corrugating machine operator, and nursing
Data:
CXR 11/2024: Mild to moderate cardiomegaly
Subjective Dataa
Subjective Data
Date of Service:
Date of Service: December 14, 2024
Subjective:
Patient comfortably lying in bed in no acute distress. No neurodeficit on exam this morning
Review of Systems
Genitourinary: Other (All 14 systems reviewed and negative except as stated above in the history of present illness.)
Objective Data
Data Reviewed
Vital Signs / I&O / Oxygen:
Vital Signs
Temp Pulse Resp BP Pulse Ox
98.3 F 67 18 149/67 95
12/14/24 07:32 12/14/24 08:00 12/14/24 06:00 12/14/24 08:01 12/14/24 06:00
Intake and Output
12/13/24 12/14/24 12/15/24
06:59 06:59 06:59
Intake Total 680 / 680 900 / 900
Output Total 1615 / 1615 2150 / 2150
Balance -935 / -935 -1250 / -1250
SaO2 95
Nasal Cannula flow liters per 2
minute
Physical Exam
General: Comfortable
HEENT: Normocephalic
Cardiovascular: S1-S2
Respiratory: Clear and Non-Labored Respirations
GI: Soft and Non Distended
Neurology: Awake and Alert
Skin: Warm
Labs/Micro/Reports
Lab Data
12/14/24 04:36
12/14/24 04:36
--- NOTE | 2024-12-14 10:09 | W.PN.CARDCBS ---
Today's Communication / Plan
-
Nonsustained VT resolved on higher Toprol dose
Outpatient stress test through piece goods clerk at [facility]
Stable cardiology status for discharge
Impression / Plan
-
PCP: Aston Valdez
Prim piece goods clerk: [facility], last seen by Pearl ALEGRIA
Impression:
NSVT on telemetry
CVA 12/13/2024
h/o CAD s/p CABG and stenting
h/o PAD s/p L hjmzk-[id number]-oolf popliteal artery to posterior tibial artery bypass with ipsilateral nonreversed greater saphenous vein conduit for history of nonhealing left foot wound on 12/11/2024
Aphasia and left-sided weakness 12/13/24, concern for TIA
mod
mod MR
normal LV function on echo 11/27/2024
Permanent atrial fibrillation
Familial hyperlipidemia
Hypertension
History of pancreatic cancer status post partial pancreatectomy and splenectomy
hypothyroidism
Previous cardiovascular testing:
Echo 11/27/2024: normal LV size and function EF 60 to 65%, moderate , mild to moderate AI, moderate MR.
Plan:
Nonsustained VT has resolved with resuming Toprol
She should follow-up with cardiology at [facility] on discharge and consider stress testing
She has new CVA but appears to be recovering nicely
Progress Note - Motor Tester
Subjective
Date of Service: December 14, 2024
No complaints
Objective
Labs:
12/14/24 04:36
12/14/24 04:36
Labs
Hgb 12.0 g/dL (12.0-16.0) 12/14/24 04:36
Hct 36.2 % (37.0-47.0) L 12/14/24 04:36
Plt Count 180 10^3/uL (130-400) 12/14/24 04:36
PT 13.7 Sec (11.4-14.6) 12/12/24 04:24
INR 1.00 12/12/24 04:24
APTT 30.2 Sec (23.4-35.0) 12/12/24 04:24
Sodium 139 mmol/L (135-145) 12/14/24 04:36
Potassium 4.4 mmol/L (3.5-5.1) 12/14/24 04:36
BUN 16 mg/dl (7-17) 12/14/24 04:36
Creatinine 0.8 mg/dL (0.6-1.0) 12/14/24 04:36
Glucose 122 mg/dl (70-99) H 12/14/24 04:36
Troponins
12/12/24
15:46
Troponin I 0.019
Vital Signs and I&O:
Vital Signs
Temp Pulse Resp BP Pulse Ox
98.3 F 67 18 149/67 95
12/14/24 07:32 12/14/24 08:00 12/14/24 06:00 12/14/24 08:01 12/14/24 06:00
Vital Signs
Temp Pulse Resp BP Pulse Ox
98.3 F 67 18 149/67 95
12/14/24 07:32 12/14/24 08:00 12/14/24 06:00 12/14/24 08:01 12/14/24 06:00
Intake & Output
12/12/24 12/13/24 12/14/24 12/15/24
06:59 06:59 06:59 06:59
Intake Total 1880 / 1960 680 / 680 900 / 900
Output Total 1735 / 1775 1615 / 1615 2150 / 2150
Balance 145 / 185 -935 / -935 -1250 / -1250
Physical Exam
Physical Exam
General: Well developed, well nourished in NAD.
Neck: Supple, no JVD, HJR, carotids +2 B/L, no bruits bilaterally.
Heart: Non displaced PMI, RRR, no murmurs, No S3, S4, no rubs.
Lungs: Clear to auscultation bilaterally, no wheeze, rhonchi, rubs bilaterally,
normal expiratory phase.
Extremities: No clubbing, cyanosis or edema bilaterally.
Neuro: Grossly nonfocal, awake, alert and oriented x3.
[2024-12-14 11:17] LABS: Glucose - Point of Care 179 mg/dl (70-99)
[2024-12-14] MEDS: NOVOLOG FLEXPEN-LOW RESISTANCE 1 UNITS SC (11:58)
[2024-12-14] MEDS: OSCAL CAL 500 500 MG PO (17:45)
[2024-12-14] MEDS: CRESTOR 20 MG PO (17:45)
[2024-12-14] MEDS: ZETIA 10 MG PO (17:45)
[2024-12-14] MEDS: VITAMIN D3 (cholecalciferol) 20 MCG PO (17:45)
[2024-12-14 17:50] LABS: Glucose - Point of Care 111 mg/dl (70-99)
--- NOTE | 2024-12-14 20:43 | PTCARENOTE ---
Received pt resting in bed, AAOx3. NIH = 1 for LLE weakness/drift. Pt. without complaints. Ambulated to bathroom with rolling walker. Afib on tele, HR 60-70s. BP stable. Afebrile. + pulses. LLE +1 edema. On RA. Lungs diminished bibasilar. + bowel
sounds. Good appetite on 1800cal diab diet. Voided clear yellow in bathroom. LLE with surgical sites- dsgs intact.
[2024-12-14] MEDS: COLACE 100 MG PO (21:10)
[2024-12-14 21:11] LABS: Glucose - Point of Care 190 mg/dl (70-99)
[2024-12-15] VITALS (18 sets, daily range): BP systolic 115–161; BP diastolic 46–98; PULSE 67; O2SAT 96; BMI 26.4
[2024-12-15] MEDS: SYNTHROID 88 MCG PO (04:36)
[2024-12-15 05:06] LABS: Hematocrit 36.3 % (37.0-47.0); Hemoglobin 12.1 g/dL (12.0-16.0); Mean Corp Hgb Conc. 33.3 g/dL (33.0-37.0); Mean Corpuscular Volume 96.8 fL (81.0-99.0); Platelet Count 206 10^3/uL (130-400); Red Cell Dist. Width 13.7 % (11.5-14.5)
[2024-12-15 05:31] LABS: Blood Urea Nitrogen 18 mg/dl (7-17); Calcium 9.1 mg/dl (8.4-10.2); Carbon Dioxide 27 mmol/L (22-30); Chloride 108 mmol/L (98-107); Estimated Creatinine Clearance 54 ml/min; Glucose 130 mg/dl (70-99); Magnesium 2.2 mg/dl (1.6-2.3); Potassium 4.3 mmol/L (3.5-5.1); Sodium 141 mmol/L (135-145); eGFR > 60.00
--- NOTE | 2024-12-15 07:13 | W.PN.VS ---
Today's Communication / Plan
-
as above
Assessment/Plan
-
Assessment: 74 year old female POD#4 Left [id number]-ytp-[id number] popliteal artery to posterior tibial artery bypass with ipsilateral nonreversed greater saphenous vein conduit.
Plan:
MRI with small acute CVA. Appreciate neurology recs
Patient reinitiated on home Eliquis, will continue
Continue neurovascular/neuro checks
Continue encourage incentive spirometry
OOB
Subjective Data
-
Date of Service: December 15, 2024
No acute events. Patient denies any further TIA symptoms.
Objective Data
-
Vital Signs
Temp Pulse Resp BP Pulse Ox
98.4 F 53 14 139/76 95
12/15/24 03:01 12/15/24 06:00 12/15/24 06:00 12/15/24 06:00 12/14/24 19:22
Intake and Output
12/14/24 12/15/24 12/16/24
06:59 06:59 06:59
Intake Total 900 / 900 400 / 400
Output Total 2150 / 2150
Balance -1250 / -1250 400 / 400
Intake:
Oral fluids 900 / 900 400 / 400
Output:
Urine, Voided 2149 / 2149
Other:
Number of approximated MODERATE 1
amounts of urine
How many times incontinent 2
MODERATE amount urine
How many times incontinent 1
SATURATED amount urine
Lab Results
12/15/24 04:32
12/15/24 04:32
Calcium 9.1 mg/dl (8.4-10.2) 12/15/24 04:32
Magnesium 2.2 mg/dl (1.6-2.3) 12/15/24 04:32
Physical Exam
-
NAD
Neuro in tact
LLE incisions c/d/i
+2 PT pulse
[2024-12-15 07:53] LABS: Glucose - Point of Care 131 mg/dl (70-99)
--- NOTE | 2024-12-15 08:00 | PTCARENOTE ---
Assumed care of patient. Pt rec'd A&Ox3. Pleasant. Denies pain at present. NIHSS 1. Left leg weakness secondary to surgery vs stroke. No other neuro deficits. S1 S2 irregular w/ + murmur...afib on monitor. +PP. Trace LLE. On R/A...lungs
clear but diminished in bases. Encouraged to cough and deep breath. Dry NPC. Abdomen soft/nte...+BS. 1800 srinivasan ada diet...takes po meds w/o issue. Voids in bathroom. Assist w/ 1 w/ walker to ambulate in room. Skin WNL except left leg w/
incision on upper thigh, mid thigh and calf region. Incisions well approximated w/ january...oozing noted. Dressings changed. Capped INT's. VS documented. Call polanco within reach. Safe environment confirmed. Will continue to monitor.
[2024-12-15] MEDS: NOVOLOG FLEXPEN-LOW RESISTANCE SC ×2 (08:08→12:25)
[2024-12-15] MEDS: LOW STRENGTH ASPIRIN 81 MG PO (08:10)
[2024-12-15] MEDS: PROTONIX 20 MG PO ×2 (08:10→20:14)
[2024-12-15] MEDS: VITAMIN B-12 1000 MCG PO (08:10)
[2024-12-15] MEDS: ELIQUIS 5 MG PO ×2 (08:10→20:14)
[2024-12-15] MEDS: TOPROL XL 25 MG PO (08:10)
[2024-12-15] MEDS: NORVASC 5 MG PO (08:11)
--- NOTE | 2024-12-15 08:18 | W.PN.CARDCBS ---
Today's Communication / Plan
-
Stable cardiology status for transfer out of ICU
No further VT with restarting beta-moe
Impression / Plan
-
PCP: Aston Valdez
Prim psychiatric technician: [facility], last seen by Pearl ALEGRIA
Impression:
NSVT on telemetry
CVA 12/13/2024
h/o CAD s/p CABG and stenting
h/o PAD s/p L pvmfn-ghu-[id number] popliteal artery to posterior tibial artery bypass with ipsilateral nonreversed greater saphenous vein conduit for history of nonhealing left foot wound on 12/11/2024
Aphasia and left-sided weakness 12/13/24, concern for TIA
mod
mod MR
normal LV function on echo 11/27/2024
Permanent atrial fibrillation
Familial hyperlipidemia
Hypertension
History of pancreatic cancer status post partial pancreatectomy and splenectomy
hypothyroidism
Previous cardiovascular testing:
Echo 11/27/2024: normal LV size and function EF 60 to 65%, moderate , mild to moderate AI, moderate MR.
Plan:
Stable cardiology status for transfer out of ICU
No further VT with resuming beta-moe
Needs outpatient stress testing through her psychiatric technician at [facility] after discharge
Discussed with nursing
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
Subjective
Date of Service: December 15, 2024
No complaints
Objective
Labs:
12/15/24 04:32
12/15/24 04:32
Labs
Hgb 12.1 g/dL (12.0-16.0) 12/15/24 04:32
Hct 36.3 % (37.0-47.0) L 12/15/24 04:32
Plt Count 206 10^3/uL (130-400) 12/15/24 04:32
PT 13.7 Sec (11.4-14.6) 12/12/24 04:24
INR 1.00 12/12/24 04:24
APTT 30.2 Sec (23.4-35.0) 12/12/24 04:24
Sodium 141 mmol/L (135-145) 12/15/24 04:32
Potassium 4.3 mmol/L (3.5-5.1) 12/15/24 04:32
BUN 18 mg/dl (7-17) H 12/15/24 04:32
Creatinine 0.8 mg/dL (0.6-1.0) 12/15/24 04:32
Glucose 130 mg/dl (70-99) H 12/15/24 04:32
Troponins
12/12/24
15:46
Troponin I 0.019
Vital Signs and I&O:
Vital Signs
Temp Pulse Resp BP Pulse Ox
98 F 66 14 133/57 95
12/15/24 07:20 12/15/24 08:11 12/15/24 06:00 12/15/24 08:11 12/14/24 19:22
Vital Signs
Temp Pulse Resp BP Pulse Ox
98 F 66 14 133/57 95
12/15/24 07:20 12/15/24 08:11 12/15/24 06:00 12/15/24 08:11 12/14/24 19:22
Intake & Output
12/13/24 12/14/24 12/15/24 12/16/24
06:59 06:59 06:59 06:59
Intake Total 680 / 680 900 / 900 400 / 400
Output Total 1615 / 1615 2150 / 2150
Balance -935 / -935 -1250 / -1250 400 / 400
Physical Exam
Physical Exam
General: Well developed, well nourished in NAD.
Neck: Supple, no JVD, HJR, carotids +2 B/L, no bruits bilaterally.
Heart: Non displaced PMI, RRR, no murmurs, No S3, S4, no rubs.
Lungs: Scattered rhonchi at the bases
Extremities: No clubbing, cyanosis or edema bilaterally.
Neuro: Grossly nonfocal, awake, alert and oriented x3.
[2024-12-15] MEDS: COLACE 100 MG PO ×2 (08:30→20:15)
[2024-12-15] MEDS: TYLENOL 650 MG PO ×2 (09:13→21:57)
[2024-12-15 12:36] LABS: Glucose - Point of Care 116 mg/dl (70-99)
[2024-12-15] MEDS: NOVOLOG FLEXPEN-LOW RESISTANCE 300 UNITS SC (17:33)
[2024-12-15] MEDS: VITAMIN D3 (cholecalciferol) 20 MCG PO (17:35)
[2024-12-15] MEDS: OSCAL CAL 500 500 MG PO (17:37)
[2024-12-15] MEDS: ZETIA 10 MG PO (17:37)
[2024-12-15] MEDS: CRESTOR 20 MG PO (17:37)
[2024-12-15 20:53] LABS: Glucose - Point of Care 139 mg/dl (70-99)
--- NOTE | 2024-12-15 21:30 | PTCARENOTE ---
Report received from previous shift RN [id number]. Pt sitting in chair, no complaints offered. Pt is AAO3, minimal LLE pain. NIH performed with a score of 1, see flowsheet for full details. Lung sounds are clear throughout, decreased in b/l base, denies
SOB, oc nonproductive cough, room air. IS at bedside and encouraged, pt achieving 1500-2000ml. Telemetry rhythm reveals Afib, HR 50-60's, irregular, +murmur, +1-2 pitting edema LLE, palpable peripheral pulses present. +BS, abdomen soft round
nontender, + appetite, tolerating MD ordered diet. Voiding yellow urine in bathroom. OOB with assist x1 and RW. LLE operative incisions approximated with january. Middle incision with one small area of sanguinous drainage, dressing changed. Call
polanco within reach, safe environment maintained. Telemetry orders noted. Will monitor closely.
[2024-12-15 22:07] LABS: Glucose - Point of Care 147 mg/dl (70-99)
[2024-12-16] VITALS (8 sets, daily range): BP systolic 128–155; BP diastolic 54–74; PULSE 60–77; O2SAT 95; BMI 26.4
[2024-12-16 04:36] LABS: Hematocrit 34.1 % (37.0-47.0); Hemoglobin 11.3 g/dL (12.0-16.0); Mean Corp Hgb Conc. 33.1 g/dL (33.0-37.0); Mean Corpuscular Volume 97.4 fL (81.0-99.0); Platelet Count 226 10^3/uL (130-400); Red Cell Dist. Width 13.6 % (11.5-14.5)
[2024-12-16 04:48] LABS: Blood Urea Nitrogen 20 mg/dl (7-17); Calcium 8.9 mg/dl (8.4-10.2); Carbon Dioxide 26 mmol/L (22-30); Chloride 110 mmol/L (98-107); Estimated Creatinine Clearance 54 ml/min; Glucose 137 mg/dl (70-99); Magnesium 2.2 mg/dl (1.6-2.3); Potassium 4.3 mmol/L (3.5-5.1); Sodium 140 mmol/L (135-145); eGFR > 60.00
[2024-12-16] MEDS: TYLENOL 650 MG PO ×2 (06:46→16:27)
[2024-12-16] MEDS: SYNTHROID 88 MCG PO (07:25)
[2024-12-16] MEDS: PROTONIX 20 MG PO (08:13)
[2024-12-16] MEDS: LOW STRENGTH ASPIRIN 81 MG PO (08:13)
[2024-12-16] MEDS: NORVASC 5 MG PO (08:13)
[2024-12-16] MEDS: TOPROL XL 25 MG PO (08:14)
[2024-12-16] MEDS: COLACE 100 MG PO (08:14)
[2024-12-16] MEDS: ELIQUIS 5 MG PO (08:14)
[2024-12-16] MEDS: VITAMIN B-12 1000 MCG PO (08:14)
[2024-12-16 08:22] LABS: Glucose - Point of Care 234 mg/dl (70-99)
--- NOTE | 2024-12-16 08:27 | W.PN.VS ---
Today's Communication / Plan
-
Patient seen and examined at bedside with Dr. Milan Wright, below plan reviewed with attending.
Assessment/Plan
-
Assessment: 74 year old female POD#5 Left zzogd-wfr-svbi popliteal artery to posterior tibial artery bypass with ipsilateral nonreversed greater saphenous vein conduit.
Plan:
MRI with small acute CVA. Appreciate neurology recs
Patient reinitiated on home Eliquis, will continue
Continue neurovascular/neuro checks
Continue encourage incentive spirometry
OOB
Patient will work again with PT, to see if disposition recs remain acute rehab
Case management consulted for dispo planning
Subjective Data
-
Date of Service: December 16, 2024
Patient seen and examined at bedside, reports well managed post operative pain. Tolerating PO diet. Denies nausea, vomiting, fever, and chills. Does report intermittent left sided weakness but almost feels back to neurological baseline. Shared with
patient that at this time PT recommends acute rehab, but vocalized that she does not want to go to rehab and prefers discharge to home.
Objective Data
-
Vital Signs
Temp Pulse Resp BP Pulse Ox
98.3 F 65 16 142/66 97
12/16/24 07:11 12/16/24 08:14 12/16/24 06:00 12/16/24 08:14 12/15/24 20:00
Intake and Output
12/15/24 12/16/24 12/17/24
06:59 06:59 06:59
Intake Total 400 / 400 840 / 840
Balance 400 / 400 840 / 840
Intake:
Oral fluids 400 / 400 840 / 840
Other:
Number of approximated MODERATE 1 1
amounts of urine
How many times incontinent 2
MODERATE amount urine
Lab Results
12/16/24 03:38
12/16/24 03:38
Calcium 8.9 mg/dl (8.4-10.2) 12/16/24 03:38
Magnesium 2.2 mg/dl (1.6-2.3) 12/16/24 03:38
Physical Exam
-
No apparent distress, sitting up at bedside
No tachycardia
No dyspnea on room air
LLE surgical sites CDI, all january well approximated, left foot warm, left PT pulse palpable
[2024-12-16 08:31] LABS: Glucose - Point of Care 127 mg/dl (70-99)
--- NOTE | 2024-12-16 08:33 | PTCARENOTE ---
Received pt awake and alert.NIHSS completed in tandem with outgoing RN.NIHSS 1.Slight LLE weakness noted.Pt ambulates with rolling walker with 1 person minimal assistance.Assisted OOB to chair.Denies pain at this time.A Fib noted.POX 97% on
RA.Appetite good.Voiding on toilet.Skin integrity as documented.Plan of care discussed with pt.
[2024-12-16] MEDS: NOVOLOG FLEXPEN-LOW RESISTANCE SC ×2 (08:50→13:12)
--- NOTE | 2024-12-16 10:12 | W.PN.CARDCBS ---
Today's Communication / Plan
-
Stable cardiology status for discharge
Sign off
Impression / Plan
-
PCP: Aston Valdez
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
Impression:
NSVT on telemetry
CVA 12/13/2024
h/o CAD s/p CABG and stenting
h/o PAD s/p L uwdtf-hft-[id number] popliteal artery to posterior tibial artery bypass with ipsilateral nonreversed greater saphenous vein conduit for history of nonhealing left foot wound on 12/11/2024
Aphasia and left-sided weakness 12/13/24, concern for TIA
mod
mod MR
normal LV function on echo 11/27/2024
Permanent atrial fibrillation
Familial hyperlipidemia
Hypertension
History of pancreatic cancer status post partial pancreatectomy and splenectomy
hypothyroidism
Previous cardiovascular testing:
Echo 11/27/2024: normal LV size and function EF 60 to 65%, moderate , mild to moderate AI, moderate MR.
Plan:
No further VT with resuming beta-moe
Needs outpatient stress testing through her pupil personnel worker at [facility] after discharge
Stable cardiology status for discharge
No further recommendations
Will sign off
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
Subjective
Date of Service: December 16, 2024
No chest pain or shortness of breath
Objective
Labs:
12/16/24 03:38
12/16/24 03:38
Labs
Hgb 11.3 g/dL (12.0-16.0) L 12/16/24 03:38
Hct 34.1 % (37.0-47.0) L 12/16/24 03:38
Plt Count 226 10^3/uL (130-400) 12/16/24 03:38
PT 13.7 Sec (11.4-14.6) 12/12/24 04:24
INR 1.00 12/12/24 04:24
APTT 30.2 Sec (23.4-35.0) 12/12/24 04:24
Sodium 140 mmol/L (135-145) 12/16/24 03:38
Potassium 4.3 mmol/L (3.5-5.1) 12/16/24 03:38
BUN 20 mg/dl (7-17) H 12/16/24 03:38
Creatinine 0.8 mg/dL (0.6-1.0) 12/16/24 03:38
Glucose 137 mg/dl (70-99) H 12/16/24 03:38
Vital Signs and I&O:
Vital Signs
Temp Pulse Resp BP Pulse Ox
98.3 F 62 20 142/66 97
12/16/24 07:11 12/16/24 08:18 12/16/24 08:18 12/16/24 08:18 12/15/24 20:00
Vital Signs
Temp Pulse Resp BP Pulse Ox
98.3 F 62 20 142/66 97
12/16/24 07:11 12/16/24 08:18 12/16/24 08:18 12/16/24 08:18 12/15/24 20:00
Intake & Output
12/14/24 12/15/24 12/16/24 12/17/24
06:59 06:59 06:59 06:59
Intake Total 900 / 900 400 / 400 840 / 840 480 / 480
Output Total 2150 / 2150
Balance -1250 / -1250 400 / 400 840 / 840 480 / 480
Physical Exam
Physical Exam
General: Well developed, well nourished in NAD.
Neck: Supple, no JVD, HJR, carotids +2 B/L, no bruits bilaterally.
Heart: Non displaced PMI, irregular, no murmurs, No S3, S4, no rubs.
Lungs: Scattered rhonchi
Extremities: No clubbing, cyanosis or edema bilaterally.
Neuro: Grossly nonfocal, awake, alert and oriented x3.
--- NOTE | 2024-12-16 10:36 | PTCARENOTE ---
Jardiance antisubstitution with Farxiga.Pt refusing Farxiga at this time.Pt's will bring in pt's own Jardiance.Pharm D made aware.
--- NOTE | 2024-12-16 12:00 | PTCARENOTE ---
No change in assessment noted.
[2024-12-16 12:29] LABS: Glucose - Point of Care 143 mg/dl (70-99)
--- NOTE | 2024-12-16 14:00 | CM ---
POD #5-Pop-Tib bypass. Discharge POC: Therapy recommendation for acute rehab. Preference is [facility]. spoke with [facility] liaison and visited unit. Referral forwarded. Questioned if a PM&R consult is needed. Awaiting response.
--- NOTE | 2024-12-16 14:45 | W.[place]-PDMP ---
[place]PD[place]
-
Checked the [place]- Prescription Drug Monitoring Program website, no red flags identified; safe to proceed with prescription.
--- NOTE | 2024-12-16 14:46 | W.DS.TRANS ---
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
-
Discharge Instructions:
Sleep Apnea Risk Intermediate
Discharge Diagnosis/Procedures Left hmcia-msn-jzkr popliteal artery to
posterior tibial artery bypass with ipsilateral
nonreversed greater saphenous vein conduit
Diet As tolerated
Activity No strenuous activity
Driving Restrictions No driving for 1 week
Bathing Restrictions OK to Shower
Instructions:
Stand-Alone Forms: Vascular Surg Discharge Instr
Changes to Home Medications: Yes
Discharge Medications:
DC Medications w/original date entered in [facility]
amlodipine 5 mg tablet 5 mg PO DAILY Blood Pressure 10/06/16
ezetimibe 10 mg tablet 10 mg PO QPM High Cholesterol 10/06/16
rosuvastatin 20 mg tablet 20 mg PO QPM High Cholesterol 10/06/16
apixaban 5 mg tablet (Eliquis) 5 mg PO BID Blood Clot Prevention/Tx 08/21/24
empagliflozin 25 mg tablet (Jardiance) 25 mg PO DAILY Diabetes 08/21/24
evolocumab 140 mg/mL subcutaneous syringe (Repatha Syringe) 140 mg SC Q2W High Cholesterol 08/21/24
acetaminophen 500 mg tablet 500 mg PO Q6H PRN pain 08/26/24
metoprolol succinate 25 mg tablet,extended release 24 hr 25 mg PO DAILY Heart Disease/Condition 08/26/24
calcium 600 mg (as carbonate)-vit D3 20 mcg (800 unit) chewable tablet (Caltrate plus D) 1 tab PO QPM Supplement 11/05/24
levothyroxine 88 mcg tablet (Synthroid) 88 mcg PO DAILY Thyroid 11/05/24
mupirocin 2 % topical ointment 1 applic topical DAILY Left Great 11/05/24
pantoprazole 20 mg tablet,delayed release (Protonix) 20 mg PO BID Gastrointestinal Issue 11/05/24
aspirin 81 mg chewable tablet 81 mg PO DAILY #90 tabs 12/16/24
docusate sodium 100 mg capsule 100 mg PO BID #60 caps 12/16/24
oxycodone 5 mg tablet 5 mg PO Q6HPRN PRN moderate pain #10 tabs 12/16/24
Home Medication Changes
Added ASA, colace and oxycodone
Pending Results: No
--- NOTE | 2024-12-16 14:49 | CM ---
Patient has been medically cleared for discharge to [facility] for acute rehab services. IMM completed. with patient. [facility] will accept at 4:00 PM today, 12/16/24.
NURSE TO NURSE REPORT #: [phone]
FAX #: [phone].
--- NOTE | 2024-12-16 15:52 | PTCARENOTE ---
No change in assessment noted.
--- NOTE | 2024-12-16 16:12 | PTCARENOTE ---
Report given to [facility] quilting supervisor.
--- NOTE | 2024-12-16 16:34 | PTCARENOTE ---
Pt requested and received Tylenol for c/o left leg pain 08/08.
--- NOTE | 2024-12-16 16:34 | PTCARENOTE ---
Pt transported to [facility] via wheelchair.
== END 2024-12-16 16:36 | DRG 252 ==
LOC: ICU 09:19
PROVIDERS: Nurse Practitioner; Nurse Practitioner Acute Care; ADMITTING PHYSICIAN Surgery Vascular Surgery; CONSULT PHYSICIAN Internal Medicine; CONSULT PHYSICIAN Internal Medicine Cardiovascular Disease; CONSULT PHYSICIAN Psychiatry & Neurology Neurology; PRIMARYCARE PHYSICIAN Nurse Practitioner Primary Care
PROC: 041N09Q Bypass Left Popliteal Artery to Lower Extremity Artery with Autologous Venous Tissue, Open Approach (ICD-10-PCS; 2024-12-11)
PROC: 06BQ0ZZ Excision of Left Saphenous Vein, Open Approach (ICD-10-PCS; 2024-12-11)
DX: E11.51 Type 2 diabetes mellitus with diabetic peripheral angiopathy without gangrene (principal); I63.9 Cerebral infarction, unspecified; I25.810 Atherosclerosis of coronary artery bypass graft(s) without angina pectoris; I47.29 Other ventricular tachycardia; I48.21 Permanent atrial fibrillation; R47.01 Aphasia; G81.94 Hemiplegia, unspecified affecting left nondominant side; I48.92 Unspecified atrial flutter; N18.31 Chronic kidney disease, stage 3a; E11.22 Type 2 diabetes mellitus with diabetic chronic kidney disease; L97.529 Non-pressure chronic ulcer of other part of left foot with unspecified severity; I70.245 Atherosclerosis of native arteries of left leg with ulceration of other part of foot; I12.9 Hypertensive chronic kidney disease with stage 1 through stage 4 chronic kidney disease, or unspecified chronic kidney disease; I25.119 Atherosclerotic heart disease of native coronary artery with unspecified angina pectoris; E78.01 Familial hypercholesterolemia; E78.49 Other hyperlipidemia; E11.621 Type 2 diabetes mellitus with foot ulcer; I35.0 Nonrheumatic aortic (valve) stenosis; E03.9 Hypothyroidism, unspecified; Z90.81 Acquired absence of spleen; Z82.41 Family history of sudden cardiac death; Z88.1 Allergy status to other antibiotic agents; Z88.0 Allergy status to penicillin; Z88.8 Allergy status to other drugs, medicaments and biological substances; Z91.048 Other nonmedicinal substance allergy status; Z79.01 Long term (current) use of anticoagulants; Z79.84 Long term (current) use of oral hypoglycemic drugs; Z79.890 Hormone replacement therapy; Z85.07 Personal history of malignant neoplasm of pancreas; Z90.411 Acquired partial absence of pancreas
CPT/HCPCS: 35571; 36415; 70450; 70496; 70498; 70551; 71045; 71046; 80048; 80061; 82607; 82728; 82746; 82962; 83036; 83735; 84443; 84484; 85025; 85027; 85610; 85730; 86850; 86900; 86901; 92610; 93005; 97116; 97163; 97167; 97530; 97535; Q9967

== ENCOUNTER → 2025-01-27 12:50 | Outpatient (REF) | payer MEDICARE, OTHER, SELFPAY | LOC: RAD 12:50 | PROVIDERS: ATTENDING PHYSICIAN Registered Nurse; FAMILY PHYSICIAN Nurse Practitioner Primary Care | DX: I73.9 Peripheral vascular disease, unspecified (principal) | CPT/HCPCS: 93922; 93925 ==

== ENCOUNTER 2025-01-31 07:23 | Outpatient (RCR) | payer SELFPAY | END 2025-01-31 09:33 | disposition home or self-care (01) | LOC: ROT 07:23 | PROVIDERS: ATTENDING PHYSICIAN Registered Nurse Critical Care Medicine; FAMILY PHYSICIAN Nurse Practitioner Primary Care | DX: Z02.4 Encounter for examination for driving license (principal) ==